=== PATIENT | male | born 1940 | race Caucasian/White ===

== ENCOUNTER 2018-02-21 13:33 | Emergency (ER) | payer MEDICARE, OTHER, SELFPAY ==
[2018-02-21 14:06] VITALS: BP 115/69; PULSE 61; RESP 16; TEMP 36.4; O2SAT 97
--- NOTE | 2018-02-21 14:19 | ED.LOWEXIN ---
HPI - Extremity Injury (Lower) General Chief Complaint: Extremity Injury, Lower Stated Complaint: PAIN RIGHT HIP Time Seen by Provider: 02/21/18 14:02 Source: patient Mode of arrival: ambulatory Limitations: no limitations History of Present Illness HPI Narrative: 77-year-old male here for evaluation of right hip pain. Patient states that it has been going on for some time now. He states that several weeks ago he had a back surgery done by a orthopedics. His also had a right hip replacement in the past. He states that since his back surgery he has had increasing right hip pain. Reports that it is on the outside of his hip. Is taking Tylenol. Worse with standing for long periods of time. Did have an appointment with his back surgeon today at 0230 however for some reason came to the emergency department instead of the doctor's office. No fevers. No urinary symptoms. No change of bowel. No saddle anesthesia. Related Data Home Medications Medication Instructions Recorded Confirmed acetaminophen 0 mg PO Q4HP PRN 02/21/18 02/21/18 omeprazole magnesium [Prilosec OTC] 40 mg PO DAILY 02/21/18 02/21/18 warfarin [Coumadin] 5 mg PO DAILY 02/21/18 02/21/18 Previous Rx's Medication Instructions Recorded lidocaine 1 patch TOP DAILY #1 each 02/21/18 tramadol 50 mg PO Q6H PRN #14 tab 02/21/18 Allergies Allergy/AdvReac Type Severity Reaction Status Date / Time hydromorphone [From DILAUDID] Allergy Unknown Halucinatio Unverified 02/21/18 14:14 ns Penicillins [PENICILLINS] Allergy Unknown A CHILD Unverified 02/21/18 14:14 - UNKNOWN REACTION PER PT ELECTRODES Allergy Mild RASH Uncoded 02/21/18 14:14 Review of Systems Constitutional Denies fever(s) Cardiovascular Denies chest pain and Denies dyspnea Respiratory Denies dyspnea Gastrointestinal Gastrointestinal: Denies abdominal pain and Denies nausea Genitourinary Denies urinary frequency, Denies urinary hesitancy and Denies urinary incontinence Musculoskeletal Reports back pain, Reports myalgias (Right upper thigh), Reports arthralgias (Right hip) and Denies muscle weakness Integumentary/Breasts Denies lesions and Denies rash Hematologic/Lymphatic Denies easy bleeding and Denies easy bruising PFSH Medical History Gastroesophageal reflux disease (Acute) Social History Smoking Status: Current every day smoker Exam Initial Vital Signs Initial Vital Signs: Vital Signs Temperature 97.5 F L 02/21/18 14:06 Pulse Rate 61 02/21/18 14:06 Respiratory Rate 16 02/21/18 14:06 Blood Pressure 115/69 02/21/18 14:06 Pulse Oximetry 97 02/21/18 14:06 Const General: cooperative, comfortable, well developed, well groomed and No acute distress Orientation: alert, awake and oriented x3 HENMT Head: normal to inspection and normocephalic Resp Effort & Inspection: normal respiratory effort Auscultation: clear to auscultation bilaterally Skin Lesions: no lesions Rashes: no rashes Neuro General: alert, awake and oriented x3 Extrem Other: Tenderness to palpation over the right greater trochanter. Otherwise unremarkable Psych Appearance: grossly normal and well kempt Course Orders Ordered: ED Orders 02/21/18 15:00 XR hip w pel if done RT 2V Stat Discontinued Medications Hydrocodone Bitart/Acetaminophen ([place] 5/325) 1 tab PO NOW ONE Stop: 02/21/18 16:19 Vital Signs - 8 hr 02/21/18 14:06 02/21/18 15:37 Temperature 97.5 F L Pulse Rate 61 57 L Respiratory Rate 16 16 Blood Pressure 115/69 Blood Pressure [Right Arm] 141/91 H Pulse Oximetry 97 94 MDM - Extremity Injury (Lower) Medical Records Attestation: I reviewed the patient's medical records. Imaging Data Right hip: Radiologist's impression: [address] [address] XRay Report Signed Patient: Kayden Chris WMR#: [id number] : 2Acct:[id number] Age/Sex: 77 / MDate of Service: 02/21/18 Loc: ED Accession Number: [id number] Procedure: XR hip w pel if done RT 2V Ordering Provider: Ellis Garrett D.O. PROCEDURE: XR HIP W PEL IF DONE RT 2V INDICATIONS: right hip pain after DORYS TECHNIQUE: AP pelvis with lateral view(s) of the right hip(s). COMPARISON: [facility] [place], XR PELVIS W LATERAL HIP LT, 01/18/2016, 12:20. FINDINGS: Bones: Old bilateral ischial fractures, surgical changes in the lower lumbar spine and status post total right hip arthroplasty with considerable surrounding ossifications as well as degenerative left hip joint disease colon appear unchanged except the lower lumbar spine was not included on the previous exam. On lateral view of the right hip, there is a nutrient groove noted posteriorly. Soft tissues: The visualized bowel gas pattern is normal. No suspicious soft tissue calcifications. IMPRESSION: No acute bony abnormality is identified. Previous post traumatic and surgical changes. Dictated by: Lobo Alvarez M.D. on 02/21/2018 at 15:45 Approved by: Lobo Alvarez M.D. on 02/21/2018 at 15:50 [facility] Narrative Medical decision making narrative: Patient with right lateral hip pain. X-ray shows no acute pathology. I discussed the case with Dr. Camarena with Orthopedic surgery who states he did not take a graft from the patient's pelvis like the patient thought. Patient has only been taking Tylenol. Will increase his pain medication. Patient was instructed he needed to contact his orthopedic provider for follow-up. He is given return precautions. He expressed understanding and agreement with plan. Discharge Plan Departure Patient Disposition: Home Clinical Impression: Acute right hip pain Instructions: How To Perform RICE (Rest, Ice, Compress, Elevate), DI for Hip Pain Activity Restrictions/Additional Instructions: Recommend you take the medication that you were given today as directed. Contact your orthopedic surgeon's office for a follow-up. Contact your primary care doctor's office for follow-up. Return to the emergency department for any new symptoms. Prescriptions: New tramadol 50 mg tablet 50 mg PO Q6H PRN (Reason: pain) Qty: 14 RF: 0 lidocaine 5 % adhesive patch,medicated 1 patch TOP DAILY Qty: 1 RF: 0 No Action acetaminophen 325 MG tablet PO Q4HP PRN (Reason: Pain (Scale Score 1-3)) RF: 0 omeprazole magnesium [Prilosec OTC] 20 mg Tablet,Delayed Release (Dr/Ec) 40 mg PO DAILY RF: 0 warfarin [Coumadin] 5 mg Tablet 5 mg PO DAILY RF: 0
--- NOTE | 2018-02-21 14:22 | PC.NURSE ---
patient had back surgery 5 months ago and is complaining of right hip pain for 5 months and reports that the pain exacerbates each day. he reports that sitting and standing too long provokes the pain but walking improves the pain at times.
--- NOTE | 2018-02-21 15:00 | DI.RAD.S_ITS ---
PROCEDURE: XR HIP W PEL IF DONE RT 2V INDICATIONS: right hip pain after DORYS TECHNIQUE: AP pelvis with lateral view(s) of the right hip(s). COMPARISON: [facility] [place], CR, XR PELVIS W LATERAL HIP LT, 01/18/2016, 12:20. FINDINGS: Bones: Old bilateral ischial fractures, surgical changes in the lower lumbar spine and status post total right hip arthroplasty with considerable surrounding ossifications as well as degenerative left hip joint disease colon appear unchanged except the lower lumbar spine was not included on the previous exam. On lateral view of the right hip, there is a nutrient groove noted posteriorly. Soft tissues: The visualized bowel gas pattern is normal. No suspicious soft tissue calcifications. IMPRESSION: No acute bony abnormality is identified. Previous post traumatic and surgical changes. Dictated by: Lobo Alvarez M.D. on 02/21/2018 at 15:45 Approved by: Lobo Alvarez M.D. on 02/21/2018 at 15:50
[2018-02-21 15:37] VITALS: BP 141/91; PULSE 57; RESP 16; O2SAT 94
[2018-02-21 16:30] VITALS: BP 150/78; PULSE 53; RESP 16; O2SAT 94
[2018-02-21] MEDS: HYDROCODONE/ACET 5/325 TABLET 1 TAB PO (16:45)
--- NOTE | 2018-02-22 15:24 | PC.NURSE ---
Pt called ER with difficulty with prescriptions. Reported only received one lidocaine patch. Discussed with Dr. Garrett and received order for quantity of 30. Called order to [facility] on [facility].
== END 2018-02-21 16:56 | disposition home or self-care (01) ==
PROVIDERS: Emergency Provider Emergency Medicine
DX: M25.551 Pain in right hip (principal)
CPT/HCPCS: 73502; 99283

== ENCOUNTER → 2019-05-13 10:55 | Outpatient (CLI) | payer MEDICARE, OTHER, SELFPAY ==
--- NOTE | 2019-05-13 | DI.MRI.S_ITS ---
PROCEDURE: MR SHOULDER RT WO CON INDICATIONS: RIGHT SHOULDER PAIN TECHNIQUE: Noncontrast oblique coronal T2 fast spin echo with fat saturation, oblique sagittal T1 spin echo and T2 fast spin echo with fat saturation, axial T1 spin echo and T2 fast spin echo with fat saturation through the shoulder. COMPARISON: None. FINDINGS: Image quality: Diagnostic. Rotator cuff: No full-thickness tear the rotator cuff is appreciated. There is prominent thickening and diffuse increased signal involving the supraspinatus and infraspinatus tendons. A low to moderate grade partial-thickness tear along the articular surface of the distal supraspinatus tendon is identified that extends along the myotendinous junction. A similar appearance is noted involving the infraspinatus tendon. The subscapularis and teres minor tendons are intact. There is no significant atrophy of the rotator cuff muscles. Bones and bursae: No acute fracture, dislocation, or suspicious osseous lesion is identified involving the osseous structures of the right shoulder. Mild degenerative changes of the glenohumeral joint are present. There is a small glenohumeral joint effusion. Severe degenerative changes of the acromioclavicular joint with inferior positioning of the acromion with respect to the distal clavicle. There is mild lateral acromial downsloping. Fluid is contained within the subacromial subdeltoid bursa. Capsule and soft tissues: Evaluation of the labrum and the glenohumeral ligaments is suboptimal without intra-articular contrast. However, there is at least a small superior labral tear extending from approximately the 10 o'clock position to the 2 o'clock position. There may be an additional subtle tear long head anteroinferior margin of the labrum. No large paralabral cysts are evident. The long head of the biceps tendon is normally positioned within the bicipital groove. However, there is prominent thickening and increased signal evident involving the intra-articular portion of this tendon. No acute injuries are suspected involving the glenohumeral ligaments. IMPRESSION: 1. Low to moderate grade intrasubstance/delaminating partial-thickness tearing of the supraspinatus and infraspinatus tendons with corresponding severe tendinopathy. 2. Small superior labral tear probably extends into the biceps anchor. 3. Moderate tendinopathy involving the intra-articular portion of the biceps tendon with possible intrasubstance low-grade partial-thickness tearing. 4. Severe degenerative changes of the acromioclavicular joint. Please correlate clinically to exclude subacromial impingement. 5. Mild degenerative changes of the glenohumeral joint. Dictated by: Kodak Waite M.D. on 05/13/2019 at 11:43 Approved by: Koadk Waite M.D. on 05/13/2019 at 11:46
== END ==
PROVIDERS: PCP Family Medicine; Visit Provider Orthopaedic Surgery
DX: M25.511 Pain in right shoulder (principal); M75.111 Incomplete rotator cuff tear or rupture of right shoulder, not specified as traumatic; S43.491A Other sprain of right shoulder joint, initial encounter; M67.911 Unspecified disorder of synovium and tendon, right shoulder
CPT/HCPCS: 73221

== ENCOUNTER → 2019-12-25 13:28 | Oncology outpatient (ONC) | payer MEDICARE, OTHER, SELFPAY ==
--- NOTE | 2019-12-25 14:21 | ONC.CONS ---
History of Present Illness - Data of Consult Patient: new to practice Consult date: 12/25/19 Requesting Physician: Adi Cleveland MD Primary Care Provider: Adi Cleveland MD - Consult Narrative Reason for consult: DVT/PE, now needing shoulder surg Narrative: Kayden Chris is a 79 year old male. He came in accompanied by his daughter. Patient has history of deep venous thrombosis and pulmonary embolism and has been on chronic anticoagulation. Upon further questioning, patient recalled that in 2014, patient developed left lower extremity DVT about a week after the food surgery. He was started on Xorelto, and treated for a couple of months and then stopped. In 2017, he underwent two levels of vertebral fusion surgery. Two days later, he developed PE. He said he had a distinct pulmonary symptoms. He was treated with Xarelto. Later, he switched to coumadin due to high cost of Xarelto. Dr. Albrecht is now managing his INR and coumadin dosage. The patient is now taking 7.5 mg 6 day a week, and 7.5 mg one day a week. He denies any bleeding problems or clot while on coumadin. He had an episode of strep infection requiring air-lifting to [place] for hospitalization and ICU. Patient is worried about possible blood clot. He has right arm rotator cuff injury and is considered for surgical repair. Dr. Hansen will plan to get surgery done here at . CC: Jennifer Fountain MD Home Medications and Allergies Home Medications Medication Instructions Recorded Confirmed Type acetaminophen 0 mg PO Q4HP PRN 02/21/18 12/25/19 History omeprazole magnesium [Prilosec OTC] 40 mg PO DAILY 02/21/18 12/25/19 History warfarin [Coumadin] 5 mg PO DAILY 02/21/18 12/25/19 History Allergies Allergy/AdvReac Type Severity Reaction Status Date / Time hydromorphone [From DILAUDID] Allergy Unknown Halucinatio Verified 02/21/18 16:41 ns Penicillins [PENICILLINS] Allergy Unknown A CHILD Verified 02/21/18 16:41 - UNKNOWN REACTION PER PT ELECTRODES Allergy Mild RASH Uncoded 02/21/18 14:14 Medical History - Medical, Surgical, Family History Medical History: Medical History (Last Updated 12/25/19 @ 14:50 by Jennifer Fountain MD) Back pain with history of spinal surgery Gastroesophageal reflux disease Surgical History: Surgical History (Last Updated 12/25/19 @ 14:50 by Jennifer Fountain MD) H/O foot surgery History of right hip replacement - Social History Smoking Status: Former smoker Substance Use Type: does not use Alcohol Intake: former Review of Systems All systems PM: reviewed and no additional remarkable complaints except as stated Exam Vital signs: 12/25/19 17:20 Last Vital Signs Temp 97.6 F 12/25/19 14:23 Pulse 60 12/25/19 14:23 Resp 18 12/25/19 14:23 BP 138/71 12/25/19 14:23 Pulse Ox 95 12/25/19 14:23 Narrative: ECOG 1 Vitals above reviewed Constitutional: well developed, and well nourished, and well groomed, not in any acute respiratory distress, pleasant and cooperative. HEENT: NCAT, EOMI, PERRLA. Anicteric sclera. Neck: Supple and symmetrical, no palpable masses. No palpable thyromegaly. Respiratory: No use of accessory muscles. CTAB, no wheezes. Cardiovascular: RRR, S1 and S2 normal, no M/G/R. No edema of lower extremities. Abdomen: Soft, NTND, no palpable masses. No palpable hepatosplenomegaly. No hernia. Lymphatic: no palpable palpable lymph nodes in the neck, or axillae Musculoskeletal: normal gait and station Neurological: CN II-XII grossly intact. No focal motor or sensory deficit. Psychiatric: Normal judgment and insight. AOx3. Normal memory (recent and remote). Normal mood and affect. Results - Imaging Additional studies: Procedures Extraction of Iliac Bone Marrow, Percutaneous Approach (09/10/17) Fusion of Lumbar Vertebral Joint with Autologous Tissue Substitute, Posterior Approach, Posterior Column, Open Approach (09/10/17) Fusion of Lumbar Vertebral Joint with Interbody Fusion Device, Posterior Approach, Anterior Column, Open Approach (09/10/17) Replacement of Right Hip Joint with Synthetic Substitute, Uncemented, Open Approach (08/23/15) Resection of Lumbar Vertebral Disc, Open Approach (09/10/17) Assessment and Plan (1) VTE (venous thromboembolism) Kayden is a 79-year-old gentleman with history of recurrent venous thromboembolism who was referred to here for opinion regarding management of anticoagulation regarding and elective right shoulder surgery. Kayden has had 2 episodes of VTE. The first episode happened in 2014 after he underwent left foot surgery. The VTE involved left lower extremity. Patient received couple of months of anticoagulation with Xarelto. The second episode happened again after surgery (vertebral fusion) probably in 2017. Patient was diagnosed with pulmonary embolism. Patient was treated initially with Xarelto thereafter switched to Coumadin because of the cost. Patient has chronic right shoulder bone changes and was evaluated by Dr. David Hansen. Therefore patient was referred here for consultation regarding management of geraldine-operative anticoagulation. I explained to the patient that he has a relatively high risk of thromboembolism if no anticoagulation bridging is offered. I talked about the protocol we usually follow from [facility]. For patients with normal serum creatinine clearance, the following protocol would be appropriate: 1. Last dose of warfarin on day -6 pre procedure 2. Hold warfarin day -5 through day -1 3. Start LMWH on day -3 (or when INR < lower limit of range) 4. Consider vitamin K 2.5mg PO on day -1 pre-procedure if INR > 1.5 5. Initiate UFH SQ/IV or LMWH when INR falls below lower limit of therapeutic range 6. Last dose LMWH 24 hours pre-procedure (on day -1, give ? dose LMWH if pt is receiving once-daily LMWH) 7. Resume warfarin 12-24 hrs post-procedure at 1 to 1.5 times usual maintenance dose (decision based on post-procedure assessment of bleeding risk) 8. Resume LMWH 24 hrs post-procedure (or 48-72hrs for major surgery or high bleeding risk procedure) and continue until INR > lower limit of therapeutic range
[2019-12-25 14:23] VITALS: BP 138/71; PULSE 60; RESP 18; TEMP 36.4; O2SAT 95
== END ==
LOC: ONC 13:34
PROVIDERS: PCP Family Medicine; Referring Provider Family Medicine; Visit Provider Internal Medicine Hematology & Oncology
DX: Z01.818 Encounter for other preprocedural examination (principal); Z86.718 Personal history of other venous thrombosis and embolism; Z86.711 Personal history of pulmonary embolism; Z79.01 Long term (current) use of anticoagulants; Z87.891 Personal history of nicotine dependence
CPT/HCPCS: 99204; 99214

== ENCOUNTER → 2021-02-08 08:10 | Outpatient (CLI) | payer MEDICARE, OTHER, SELFPAY ==
[2021-02-08 18:53] LABS: Add Manual Diff / Slide Review NO; Basophils Absolute Auto 0 /uL (0-100); Basophils Percent Auto 0.8 % (0-2); Eosinophils Absolute Auto 200 /uL (0-450); Eosinophils Percent Auto 4.8 % (2-4); Hematocrit 46.5 % (41-53); Hemoglobin 15.6 g/dL (13.5-17.5); Lymphocytes Absolute Auto 1700 /uL (1100-4500); Lymphocytes Percent Auto 34.9 % (25-40); Mean Corpuscular HGB Conc 33.6 % (30-36); Mean Corpuscular Hemoglobin 29.9 PG (26-34); Mean Corpuscular Volume 88.9 fL (80-100); Monocytes Absolute Auto 400 /uL (0-900); Monocytes Percent Auto 7.6 % (3-14); Neutrophils Absolute Auto 2500 /uL (1500-7000); Neutrophils Percent Auto 51.9 % (50-75); Platelet Count 156 X10^3/uL (150-400); Red Blood Cell Count 5.22 X10^6/uL (4.5-5.9); Red Cell Distribution Width 14.5 % (11.6-14.8); White Blood Cell Count 4.9 X10^3/uL (4.5-11.0)
[2021-02-08 19:03] LABS: HEMOLYSIS < 15 (0-50); Iron 97 ug/dL (49-181)
[2021-02-08 19:06] LABS: Alanine Aminotransferase 16 IU/L (<50); Albumin 3.8 g/dL (3.5-5.0); Albumin Globulin Ratio 1.4 (1.0-2.8); Alkaline Phosphatase 58 U/L (38-126); Aspartate Aminotransferase 27 IU/L (17-59); BUN Creatinine Ratio 17.7 (6-22); Bilirubin Total 0.8 mg/dL (0.2-1.3); Blood Urea Nitrogen 17 mg/dL (9-20); Calcium 9.3 mg/dL (8.4-10.2); Carbon Dioxide 29 mmol/L (22-32); Chloride 104 mmol/L (98-107); Cholesterol 260 mg/dL (140-199); Estimated Glomerular Filt Rate > 60.0 mL/min (>60); Globulin 2.8 g/dL (1.7-4.1); Glucose 98 mg/dL (80-110); HDL Cholesterol 48 mg/dL (40-60); HEMOLYSIS < 15 (0-50); LDL Cholesterol Calculated 190 mg/dL (<100); Potassium 4.1 mmol/L (3.4-5.1); Sodium 138 mmol/L (137-145); Total Protein 6.6 g/dL (6.3-8.2); Triglycerides 109 mg/dL (35-150)
[2021-02-08 19:16] LABS: Percent Iron Saturation 32 % (20-50); Total Iron Binding Capacity 301 ug/dL (261-462); Transferrin 237 mg/dL (206-381)
[2021-02-08 19:20] LABS: Vitamin D 25 Hydroxy (D3) 14.3 ng/mL (30.0-100.0)
[2021-02-08 19:35] LABS: Thyroid Stimulating Hormone 3.43 uIU/mL (0.47-4.68)
[2021-02-08 19:57] LABS: Vitamin B12 381 pg/mL (239-931)
== END ==
PROVIDERS: PCP Family Medicine; Visit Provider Physician Assistant
DX: E78.5 Hyperlipidemia, unspecified (principal); I63.9 Cerebral infarction, unspecified; E55.9 Vitamin D deficiency, unspecified; I69.311 Memory deficit following cerebral infarction; Z79.01 Long term (current) use of anticoagulants
CPT/HCPCS: 80053; 80061; 82306; 82607; 83540; 83550; 84443; 85025

== ENCOUNTER → 2021-07-15 10:46 | Outpatient (CLI) | payer MEDICARE, OTHER, SELFPAY ==
--- NOTE | 2021-07-15 | DI.MRI.S_ITS ---
PROCEDURE: MR LUMBAR SPINE WO CON INDICATIONS: Spinal stenosis, lumbar region with neurogenic cla TECHNIQUE: Noncontrast sagittal T1 spin echo and T2 fast echo, sagittal STIR, axial T1 and T2 fast spin echo through the lumbar spine. In cases with scoliosis, additional coronal T2 fast spin echo may be performed. COMPARISON: [facility], MR, L-SPINE WITHOUT CONTRAST, 02/13/2017, 11:51. FINDINGS: Image quality: Excellent. Alignment and Curvature: There is posterior fusion is present at L4-5. Mild reactive endplate changes are present L2-3, L5-S1. Schmorl's node is noted along the superior endplate of L3 L4 and possibly inferior endplate of L5. Bone Marrow: Marrow is of normal overall signal. No acute vertebral body compression fractures. Spinal Cord: Conus medullaris terminates at the L1 level. Visualized cord demonstrates normal signal and size. Paraspinous Soft Tissues: No paravertebral masses. Discs: Moderate to severe desiccation is present throughout the lumbar spine. L1-L2: Mild disc bulge with mild spinal stenosis. There is moderate to severe left and moderate right foraminal narrowing with facet and ligamentum flavum hypertrophy. Stable since prior exam. L2-L3: Mild disc bulge with moderate spinal stenosis. Moderate to severe left and moderate right foraminal narrowing, with facet and ligamentum flavum hypertrophy. Stable since prior exam. L3-L4: Mild disc bulge with moderate spinal stenosis. Minimal epidural lipomatosis is present. Moderate to severe bilateral foraminal narrowing, stable since prior exam. Facet and ligamentum flavum hypertrophy are present. L4-L5: Postsurgical changes are present. There is no spinal stenosis, markedly improved compared to prior MRI in [address] L spine in 2018. Moderate bilateral foraminal narrowing, mildly improved compared to prior MRI exam and stable since prior CT. L5-S1: Postsurgical changes are present. Mild spinal stenosis. Moderate bilateral foraminal narrowing with facet and ligamentum flavum hypertrophy. No appreciable interval change. IMPRESSION: 1. Posterior fusion at L4-5. 2. Multilevel foraminal narrowing stable since most recent prior exam. Foraminal narrowing is predominantly secondary to facet arthropathy. 3. Multilevel spinal stenosis stable compared to prior exam most notable at L2-3 and L3-4 secondary to disc bulge with contributing effect of facet/ligamentum flavum arthropathy. Dictated by: Lillian Buenrostro M.D. on 07/15/2021 at 13:14 Approved by: Lillian Buenrostro M.D. on 07/15/2021 at 14:15
== END ==
PROVIDERS: PCP Family Medicine; Referring Provider Orthopaedic Surgery Orthopaedic Surgery of the Spine; Visit Provider Orthopaedic Surgery Orthopaedic Surgery of the Spine
DX: M48.062 Spinal stenosis, lumbar region with neurogenic claudication (principal); M47.816 Spondylosis without myelopathy or radiculopathy, lumbar region; M48.061 Spinal stenosis, lumbar region without neurogenic claudication; M48.07 Spinal stenosis, lumbosacral region; M51.26 Other intervertebral disc displacement, lumbar region; Z98.1 Arthrodesis status
CPT/HCPCS: 72148

== ENCOUNTER → 2021-08-18 10:34 | Outpatient (CLI) | payer MEDICARE, OTHER, SELFPAY ==
--- NOTE | 2021-08-18 | DI.NM.S_ITS ---
PROCEDURE: NM BONE SCAN WHOLE BODY RADIOPHARMACEUTICAL: 19.6 mCi Tc-99m MDP IV. 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 Anterior and posterior views were acquired from vertex to feet. Additional left and right oblique views of the pelvis and hips were obtained. COMPARISON: [facility] [place], CR, XR PELVIS WITH LATERAL HIP RIGHT, 08/05/2021, 13:25. FINDINGS: Degenerative uptake of radiotracer at the acromioclavicular and glenohumeral joints. Right hip arthroplasty has been performed. No significant increased radiotracer uptake surrounding the right hip arthroplasty. IMPRESSION: 1. No evidence of right hip arthroplasty loosening. 2. Degenerative uptake of radiotracer at the acromioclavicular and glenohumeral joints. Dictated by: Ernie Schwartz M.D. on 08/18/2021 at 15:19 Approved by: Ernie Schwartz M.D. on 08/18/2021 at 16:48
== END ==
PROVIDERS: PCP Family Medicine; Referring Provider Orthopaedic Surgery; Visit Provider Orthopaedic Surgery
DX: T84.030A Mechanical loosening of internal right hip prosthetic joint, initial encounter (principal)
CPT/HCPCS: 78306; A9503

== ENCOUNTER → 2022-04-20 09:07 | Outpatient (CLI) | payer MEDICARE, OTHER, SELFPAY ==
[2022-04-20 20:05] LABS: Cholesterol 146 mg/dL (140-199); HDL Cholesterol 56 mg/dL (40-60); LDL Cholesterol Calculated 77 mg/dL (<100); Triglycerides 64 mg/dL (35-150)
[2022-04-24 18:36] LABS: Lamotrigine Lamictal 6.8 ug/mL (2.0-20.0)
== END ==
PROVIDERS: PCP Family Medicine
DX: E78.00 Pure hypercholesterolemia, unspecified (principal); R56.9 Unspecified convulsions
CPT/HCPCS: 80061; 80175

== ENCOUNTER → 2022-05-01 09:38 | Outpatient (CLI) | payer MEDICARE, OTHER, SELFPAY ==
[2022-05-01 19:25] LABS: Alanine Aminotransferase 20 IU/L (<50); Albumin 4.3 g/dL (3.5-5.0); Albumin Globulin Ratio 1.5 (1.0-2.8); Alkaline Phosphatase 55 U/L (38-126); Aspartate Aminotransferase 28 IU/L (17-59); Bilirubin Total 0.7 mg/dL (0.2-1.3); Blood Urea Nitrogen 18 mg/dL (9-20); Carbon Dioxide 33 mmol/L (22-32); Chloride 99 mmol/L (98-107); Estimated Glomerular Filt Rate > 60 mL/min (>60); Globulin 2.8 g/dL (1.7-4.1); Glucose 98 mg/dL (80-110); HEMOLYSIS < 15 (0-50); Potassium 4.3 mmol/L (3.4-5.1); Sodium 140 mmol/L (137-145); Total Protein 7.1 g/dL (6.3-8.2)
[2022-05-01 19:29] LABS: Add Manual Diff / Slide Review NO; Basophils Absolute Auto 0 /uL (0-100); Basophils Percent Auto 0.8 % (0-2); Eosinophils Absolute Auto 200 /uL (0-450); Eosinophils Percent Auto 4.3 % (2-4); Hematocrit 43.5 % (41-53); Hemoglobin 15.2 g/dL (13.5-17.5); Lymphocytes Absolute Auto 1500 /uL (1100-4500); Lymphocytes Percent Auto 28.6 % (25-40); Mean Corpuscular Hemoglobin 30.7 PG (26-34); Mean Corpuscular Volume 87.7 fL (80-100); Monocytes Absolute Auto 400 /uL (0-900); Monocytes Percent Auto 7.5 % (3-14); Neutrophils Absolute Auto 3100 /uL (1500-7000); Neutrophils Percent Auto 58.8 % (50-75); Platelet Count 137 X10^3/uL (150-400); Red Blood Cell Count 4.96 X10^6/uL (4.5-5.9); Red Cell Distribution Width 14.2 % (11.6-14.8); White Blood Cell Count 5.3 X10^3/uL (4.5-11.0)
[2022-05-01 19:38] LABS: Vitamin D 25 Hydroxy (D3) 26.3 ng/mL (30.0-100.0)
[2022-05-01 19:53] LABS: TSH w/ Reflex to FT4 3.22 uIU/mL (0.47-4.68)
[2022-05-01 20:12] LABS: Vitamin B12 653 pg/mL (239-931)
== END ==
PROVIDERS: PCP Family Medicine; Visit Provider Family Medicine
DX: I10 Essential (primary) hypertension (principal); I48.91 Unspecified atrial fibrillation; E53.8 Deficiency of other specified B group vitamins; E55.9 Vitamin D deficiency, unspecified
CPT/HCPCS: 80053; 82306; 82607; 84443; 85025

== ENCOUNTER → 2022-08-07 09:09 | Outpatient (CLI) | payer MEDICARE, OTHER, SELFPAY ==
[2022-08-07 19:39] LABS: Alanine Aminotransferase 21 IU/L (<50); Albumin 4.1 g/dL (3.5-5.0); Albumin Globulin Ratio 1.5 (1.0-2.8); Alkaline Phosphatase 60 U/L (38-126); Aspartate Aminotransferase 27 IU/L (17-59); BUN Creatinine Ratio 16.3 (6-22); Bilirubin Total 0.9 mg/dL (0.2-1.3); Blood Urea Nitrogen 16 mg/dL (9-20); Calcium 8.7 mg/dL (8.4-10.2); Carbon Dioxide 27 mmol/L (22-32); Chloride 103 mmol/L (98-107); Estimated Glomerular Filt Rate > 60 mL/min (>60); Globulin 2.7 g/dL (1.7-4.1); Glucose 92 mg/dL (80-110); HEMOLYSIS < 15 (0-50); Potassium 3.9 mmol/L (3.4-5.1); Sodium 139 mmol/L (137-145); Total Protein 6.8 g/dL (6.3-8.2)
[2022-08-07 20:08] LABS: Thyroid Stimulating Hormone 3.56 uIU/mL (0.47-4.68)
== END ==
PROVIDERS: PCP Family Medicine; Visit Provider Family Medicine
DX: Z00.00 Encounter for general adult medical examination without abnormal findings (principal); E78.00 Pure hypercholesterolemia, unspecified; I48.91 Unspecified atrial fibrillation
CPT/HCPCS: 80053; 84443

== ENCOUNTER → 2022-08-09 10:48 | Outpatient (CLI) | payer MEDICARE, OTHER, SELFPAY ==
--- NOTE | 2022-08-09 | DI.NM.S_ITS ---
PROCEDURE: NM FLO PERF SPECT R&S PHARM Rest and pharmacological stress myocardial perfusion SPECT with gated imaging and ejection fraction RADIOPHARMACEUTICAL: 10.6 mCi Tc-99m tetrafosmin IV at rest and 25.5 mCi Tc-99m tetrafosmin IV at peak effect of pharmacological stress. A [id number] was performed. INDICATIONS: Shortness of breath TECHNIQUE: Radiopharmaceutical was injected at peak stress test, and also at rest. SPECT images were obtained. SPECT myocardial perfusion images were displayed in short axis, horizontal long axis, and vertical long axis views. Gated images were reviewed using [employer] software. COMPARISON: None. CARDIAC STRESS: A pharmacologic stress test was performed under the supervision of an attending staff, using an infusion of regadenoson 0.4 mg IV. Hemodynamic data: There is normal blood pressure and heart rate response to pharmacologic stress. Symptoms: The patient denied anginal chest pain. EKG: No diagnostic changes of ischemia; no ectopy. FINDINGS: Raw data: There is good myocardial uptake of radiotracer. No significant motion artifacts. Dbry-wl-yycht ratio is 0.38 (normal is less than 0.38 for tetrafosmin tracer). Left ventricle function: Gated images demonstrate normal left ventricular wall thickening. No segmental wall motion abnormalities. No transient ischemic dilation; TID is 0.87 (normal less than 1.3). Left ventricle resting end diastolic volume is 139 mL. Left ventricle stress ejection fraction is 67%; normal range is above 45%. Myocardial perfusion: There is a large size, mild intensity fixed inferior wall defect that appears better in the supine images and resolves in the prone images. No reversible perfusion defects. IMPRESSION: Low risk study. No evidence of pharmacologic induced ischemia or scar. Normal left ventricular function with a slightly increased end-diastolic volume. Dictated by: Nicole Ramos D.O. on 08/09/2022 at 16:40 Approved by: Nicole Ramos D.O. on 08/09/2022 at 16:43
== END ==
PROVIDERS: PCP Family Medicine; Referring Provider Internal Medicine Cardiovascular Disease; Visit Provider Internal Medicine Cardiovascular Disease
DX: R06.02 Shortness of breath (principal)
CPT/HCPCS: 78452; 93017; A9502; J2785

== ENCOUNTER → 2022-10-16 08:19 | Outpatient (CLI) | payer MEDICARE, OTHER, SELFPAY ==
[2022-10-16 19:44] LABS: BUN Creatinine Ratio 18.3 (6-22); Blood Urea Nitrogen 20 mg/dL (9-20); Calcium 8.9 mg/dL (8.4-10.2); Carbon Dioxide 33 mmol/L (22-32); Chloride 101 mmol/L (98-107); Estimated Glomerular Filt Rate > 60 mL/min (>60); Glucose 96 mg/dL (80-110); HEMOLYSIS < 15 (0-50); Sodium 139 mmol/L (137-145)
== END ==
PROVIDERS: PCP Family Medicine; Visit Provider Family Medicine
DX: Z01.812 Encounter for preprocedural laboratory examination (principal)
CPT/HCPCS: 80048

== ENCOUNTER → 2022-11-01 11:18 | Outpatient (CLI) | payer MEDICARE, OTHER, SELFPAY ==
--- NOTE | 2022-11-01 11:22 | DI.CT.S_ITS ---
PROCEDURE: CT CHEST W CON INDICATIONS: wheezing, dyspnea for 2 months. NORMAL CXR TECHNIQUE: After the administration of intravenous contrast, 5 mm thick sections acquired from the pulmonary apices to the posterior costophrenic angles. 1 mm axial lung, 5 mm thick coronal and sagittal reformats and 7 mm axial MIP were acquired. For radiation dose reduction, the following was used: automated exposure control, adjustment of mA and/or kV according to patient size. COMPARISON: [facility], CT, PE STUDY (CTA CHEST), 09/15/2017, 19:50. [facility] ([place]), CR, XR CHEST 2V, 10/05/2022, 10:03. FINDINGS: Lungs and pleura: Mild emphysema. No consolidation, pleural effusion, or pneumothorax. A few scattered calcified granulomata are present. 4 mm nodule anterior left lower lobe (3/262) possibly calcified. Mediastinum: Multivessel coronary artery calcifications and/or stents. No pericardial effusion. No mediastinal or hilar adenopathy by size criteria. Thoracic aorta and central pulmonary arteries are normal in size. Esophagus is normal in caliber. Bones and chest wall: Multilevel degenerative change of the visualized spine. No axillary or supraclavicular adenopathy by size criteria. Probable soft tissue lipoma at the upper right back near midline, adjacent to the medial border of the scapula. Multiple remote right posterior rib fractures and/or thoracotomy changes. Abdomen: Prior cholecystectomy. Similar small hypodensity anterior aspect hepatic segment 2, possible cyst or hemangioma. IMPRESSION: 1. No consolidation, pleural effusion, or pneumothorax. 2. Mild emphysema. 3. A 4 mm nodule is present at the anterior left lower lobe. If the patient is considered low risk, imaging follow-up is not necessary per Fleischner society guidelines. If the patient is considered high risk, an optional 12 month follow-up chest CT could be obtained. Dictated by: Max Morgan M.D. on 11/01/2022 at 14:44 Approved by: Max Morgan M.D. on 11/01/2022 at 15:02
== END ==
PROVIDERS: PCP Family Medicine; Referring Provider Family Medicine; Visit Provider Family Medicine
DX: J43.9 Emphysema, unspecified (principal); R91.1 Solitary pulmonary nodule; I25.10 Atherosclerotic heart disease of native coronary artery without angina pectoris; R06.2 Wheezing; R06.00 Dyspnea, unspecified; Z57.5 Occupational exposure to toxic agents in other industries; Z90.49 Acquired absence of other specified parts of digestive tract
CPT/HCPCS: 71260; Q9967

== ENCOUNTER → 2022-11-16 13:46 | Outpatient (CLI) | payer MEDICARE, OTHER, SELFPAY ==
--- NOTE | 2022-11-16 13:47 | DI.RAD.S_ITS ---
PROCEDURE: FL BARIUM SWALLOW INDICATIONS: choking COMPARISON: [facility], CT, CT CHEST W CON, 11/01/2022, 11:36. FINDINGS: Function: There is normal esophageal peristalsis. There is severe gastroesophageal reflux. There is normal transit of a calibrated barium tablet through the esophagus into the stomach. Small sliding hiatal hernia. Morphology: Air-contrast images demonstrate normal mucosal morphology. Single contrast views show no esophageal strictures, extrinsic mass effects, or diverticula. Limited images of the stomach demonstrate normal appearance. IMPRESSION: 1. Severe gastroesophageal reflux. 2. Small hiatal hernia. Dictated by: Nile Lovelace M.D. on 11/16/2022 at 14:11 Approved by: Nile Lovelace M.D. on 11/16/2022 at 14:12
== END ==
PROVIDERS: PCP Family Medicine; Referring Provider Family Medicine; Visit Provider Family Medicine
DX: K21.9 Gastro-esophageal reflux disease without esophagitis (principal); K44.9 Diaphragmatic hernia without obstruction or gangrene
CPT/HCPCS: 74220

== ENCOUNTER → 2022-12-14 10:53 | Outpatient (CLI) | payer MEDICARE, OTHER, SELFPAY ==
--- NOTE | 2022-12-20 10:29 | PM.PFT.1 ---
Pulmonary Function Test Referral & Results Date Patient Seen: 12/14/22 Results: The spirometry demonstrates an FVC of 2.59 L which is 71% of predicted. The FEV1 was measured at 1.87 L which is 73% of predicted. The FEV1/FVC ratio was 72 which is 101% of predicted. Following the administration of bronchodilator there was 15% improvement in FEV1 and a 74% improvement in FEF 25-75%. Lung volumes show an SVC of 3.06 L which is 74% of predicted. The diffusing capacity was measured at 17.58 which is 59% of predicted. No hemoglobin value was provided, so no correction for potential anemia could be made, if appropriate. The maximum voluntary ventilation was reduced Interpretation: This study demonstrates mild obstructive lung disease based on reduction FEV1 although FEV1/FVC ratio is relatively preserved there is evidence of benefit following bronchodilator as above particularly in small airway flow based on improvement in FEF 25-75% There is a [id number]-[id number]-iakqyayq reduction in lung volumes suggesting the presence of qjkk-sf-twcmojyq restrictive lung disease There is also moderate reduction in diffusing capacity suggesting the presence of disease at the capillary alveolar level Altogether this is consistent with a diagnosis of COPD Clinical correlation suggested
== END ==
PROVIDERS: PCP Family Medicine; Referring Provider Family Medicine; Visit Provider Family Medicine
DX: R06.02 Shortness of breath (principal); R05.3 Chronic cough; J43.2 Centrilobular emphysema; Z87.891 Personal history of nicotine dependence
CPT/HCPCS: 94060; 94726; 94729

== ENCOUNTER → 2023-09-17 10:51 | Outpatient (CLI) | payer MEDICARE, OTHER, SELFPAY ==
[2023-09-17 19:30] LABS: Add Manual Diff / Slide Review NO; Basophils Absolute Auto 100 /uL (0-100); Basophils Percent Auto 1.1 % (0-2); Eosinophils Absolute Auto 300 /uL (0-450); Eosinophils Percent Auto 5.6 % (2-4); Hematocrit 37.7 % (41-53); Hemoglobin 12.8 g/dL (13.5-17.5); Lymphocytes Absolute Auto 1300 /uL (1100-4500); Lymphocytes Percent Auto 28.7 % (25-40); Mean Corpuscular HGB Conc 34.1 % (30-36); Mean Corpuscular Hemoglobin 30.1 PG (26-34); Mean Corpuscular Volume 88.4 fL (80-100); Monocytes Absolute Auto 400 /uL (0-900); Monocytes Percent Auto 8.3 % (3-14); Neutrophils Absolute Auto 2600 /uL (1500-7000); Neutrophils Percent Auto 56.3 % (50-75); Platelet Count 148 X10^3/uL (150-400); Red Blood Cell Count 4.26 X10^6/uL (4.5-5.9); Red Cell Distribution Width 14.9 % (11.6-14.8); White Blood Cell Count 4.7 X10^3/uL (4.5-11.0)
[2023-09-17 19:41] LABS: Alanine Aminotransferase 17 IU/L (<50); Albumin 3.9 g/dL (3.5-5.0); Albumin Globulin Ratio 1.5 (1.0-2.8); Alkaline Phosphatase 50 U/L (38-126); Aspartate Aminotransferase 33 IU/L (17-59); BUN Creatinine Ratio 25.2 (6-22); Bilirubin Total 0.6 mg/dL (0.2-1.3); Blood Urea Nitrogen 27 mg/dL (9-20); Calcium 8.9 mg/dL (8.4-10.2); Carbon Dioxide 29 mmol/L (22-32); Chloride 105 mmol/L (98-107); Estimated Glomerular Filt Rate > 60 mL/min (>60); Globulin 2.6 g/dL (1.7-4.1); Glucose 101 mg/dL (80-110); HEMOLYSIS < 15 (0-50); Potassium 3.8 mmol/L (3.4-5.1); Sodium 140 mmol/L (137-145); Total Protein 6.5 g/dL (6.3-8.2)
[2023-09-17 19:52] LABS: LDL Cholesterol Direct 56 mg/dL (<100)
[2023-09-17 20:21] LABS: TSH w/ Reflex to FT4 2.37 uIU/mL (0.47-4.68)
[2023-09-17 20:29] LABS: Vitamin B12 Reflex MMA if <400 710 pg/mL (239-931)
== END ==
PROVIDERS: PCP Family Medicine; Visit Provider Family Medicine
DX: R60.0 Localized edema (principal); E55.9 Vitamin D deficiency, unspecified; I10 Essential (primary) hypertension; G47.19 Other hypersomnia; R09.02 Hypoxemia; I48.91 Unspecified atrial fibrillation; E53.8 Deficiency of other specified B group vitamins
CPT/HCPCS: 80053; 82306; 82607; 83721; 84443; 85025

== ENCOUNTER → 2023-10-12 10:40 | Outpatient (CLI) | payer MEDICARE, OTHER, SELFPAY ==
--- NOTE | 2023-10-12 10:41 | DI.ECHO.S_ITS ---
[facility]---------+ [facility] +---------+ : : [address] : : : : [id number] : : : : Phone: [phone]+ Echocardiogram Report + + :Name: HEATHER GARCIA Study Date: 10/12/2023 Height: 68 in : :[facility] ReadingLocation: Weight: 235 lb : : Gender: Male BSA: 2.2 m2 : :: 1940 Age: 83 yrs BP: 144/86 mmHg: :Reason For Study: DYSPNEA : :Ordering Physician: АННА, : :MAICOL Performed By: Karson Gurrola : :Referring: MAICOL JJ : + + Interpretation Summary Normal sinus rhythm. Normal LV size; borderline LVH; normal wall motion and LV systolic function. EF is 60-65%; stage I diastolic dysfunction. Normal chamber sizes. Aortic sclerosis without stenosis; otherwise normal chamber sizes. No prior study available for comparison. Procedure: A two-dimensional transthoracic echocardiogram with color flow and Doppler was performed. The study quality was technically adequate. There is no prior echocardiogram noted for this patient. The heart rate ranged between 60-69 bpm during the study. Left Ventricle: The left ventricle is normal in size. Left ventricular wall thickness is borderline increased. The ejection fraction is estimated to be 60-65%. Right Ventricle: The right ventricle is normal in size, thickness and function. The right ventricular systolic function is normal. Atria: The left atrial size is normal. Right atrial size is normal. The interatrial septum grossly appears intact with no obvious evidence for an atrial septal defect. Mitral Valve: The mitral valve is normal in structure and function. There is no mitral valve stenosis. There is trace mitral regurgitation. Aortic Valve: The aortic valve is trileaflet. The aortic valve is mildly calcified. There is no aortic valve stenosis. There is mild aortic regurgitation. Tricuspid Valve: The tricuspid valve is normal in structure and function. There is no tricuspid stenosis. There is mild tricuspid regurgitation. The right ventricular systolic pressure is estimated to be at least 38 mmHg based on an estimated right atrial pressure of 3 mm Hg. Pulmonic Valve: The pulmonic valve is not well visualized. There is no pulmonic valvular stenosis. There is no pulmonic valvular regurgitation. Great Vessels: The aortic root is normal size. The ascending aorta could not be visualized. The IVC is of normal diameter and collapses greater than 50% with a sniff. This suggests a low right atrial pressure of 3 mm Hg. Pericardium/ Pleura There is no pericardial effusion. There is no pleural effusion. MMode/2D Measurements & Calculations LVIDd: 5.0 cm LVOT diam: 2.0 cm LVIDs: 3.3 cm Ao root diam: 3.4 cm FS: 34.5 % Ao Arch Diam (Prox Trans): 3.0 cm IVSd: 1.2 cm LVPWd: 0.97 cm LV alexander. diameter/BSA (cm/m^2): 2.3 LV sys. diameter/BSA (cm/m^2): 1.5 LA A2 area: 16.8 cm2 RA long axis: 5.0 cm LA A4 area: 15.3 cm2 RA area: 18.8 cm2 LA length (vol): 4.9 cm RA vol: 60.3 ml LA vol: 44.7 ml RA : 27.5 ml/m2 LA vol index: 20.4 ml/m2 IVC diam: 2.0 cm RVD1 (basal): 4.1 cm RVD2 (mid): 4.1 cm TAPSE: 3.1 cm Doppler Measurements & Calculations Ao V2 max: 202.8 cm/sec LVOT Max Lenin: 104.8 cm/sec Ao V2 mean: 144.3 cm/sec LV V1 max P.4 mmHg Ao max P.4 mmHg LV V1 VTI: 22.3 cm Ao mean P.2 mmHg YADI(I,D): 1.6 cm2 Ao V2 VTI: 44.5 cm YADI(V,D): 1.7 cm2 sev ratio: 0.50 YADI indexed to BSA (cm^2/m^2): 0.75 MV E max lenin: 63.2 cm/sec TR max lenin: 295.9 cm/sec MV A max lenin: 97.2 cm/sec TR max P.2 mmHg MV E/A: 0.65 PA V2 max: 115.5 cm/sec Med Peak E' Lenin: 4.8 cm/sec PA V2 mean: 81.5 cm/sec E/E' med: 13.2 PA mean P.9 mmHg Lat Peak E' Lenin: 6.4 cm/sec PA pr(Accel): 41.3 mmHg E/E' lat: 9.8 E/e' average: 11.5 MV dec time: 0.20 sec SV(LVOT): 72.9 ml Electronically signed by: Jeanne Parra M.D. on [place] Physician:10/13/2023 06:03 AM
== END ==
LOC: ECHO 10:40
PROVIDERS: PCP Family Medicine; Referring Provider Family Medicine; Visit Provider Family Medicine
DX: I48.91 Unspecified atrial fibrillation (principal); R06.00 Dyspnea, unspecified; R60.0 Localized edema; R09.02 Hypoxemia; I08.2 Rheumatic disorders of both aortic and tricuspid valves
CPT/HCPCS: 93306

== ENCOUNTER 2023-10-25 10:54 | Emergency (ER) | payer MEDICARE, OTHER, SELFPAY ==
[2023-10-25 11:02] VITALS: BP 157/72; PULSE 63; RESP 15; TEMP 36.1; O2SAT 96; BMI 34.2
--- NOTE | 2023-10-25 11:06 | DI.US.S_ITS ---
PROCEDURE: US PERIPH VENOUS LOW EXTREM LT INDICATIONS: PAIN, EDEMA TECHNIQUE: Real-time imaging, as well as color and pulse Doppler interrogation, were performed of the lower extremity deep veins from the inguinal ligament to the popliteal fossa, with documentation of the visualized calf veins. COMPARISON: None. FINDINGS: The common femoral, femoral, popliteal, and the visualized calf veins are normally compressible, and free of intraluminal thrombus. Color and pulse Doppler demonstrate normal phasic intraluminal flow. There is normal augmentation response to distal compression maneuver. IMPRESSION: No findings of lower extremity deep venous thrombosis. Dictated by: Leslie Hobbs MD, PhD on 10/25/2023 at 12:08 Approved by: Leslie Hobbs MD, PhD on 10/25/2023 at 12:08
--- NOTE | 2023-10-25 12:17 | ED_ITS ---
HPI - Extremity Problem <Raymundo Leo PA-C - Last Filed: 10/25/23 12:39> General Chief complaint: Extremity Problem,Nontraumatic Stated complaint: L lower leg pos. need US/painful/swollen Time Seen by Provider: 10/25/23 11:04 Source: patient Mode of arrival: Ambulatory History of Present Illness HPI Narrative: This is a 83-year-old male presenting to the emergency department due to left calf swelling onset 3 days ago. He states that he was somewhat uncomfortable the minus he did not significant acute pain. Denies any numbness. No traumas of the left calf. Does take a ?water pill? but is unsure of dosage. Had an echo done 2 weeks ago which showed an ejection fraction of 60-65%. Denies any new difficulty breathing, chest pain, or any other concerning signs or symptoms. Related Data Home Medications Medication Instructions Recorded Confirmed omeprazole magnesium 20 mg 40 mg PO DAILY 02/21/18 10/11/23 tablet,delayed release (Prilosec OTC) chlorhexidine gluconate 0.12 % PO 05/16/23 10/11/23 mouthwash Previous Rx's Medication Instructions Recorded apixaban 5 mg tablet 5 mg PO BID #60 tabs 08/14/22 metoprolol succinate 25 mg 25 mg PO DAILY #90 tabs 09/07/22 tablet,extended release 24 hr inhalational spacing device #1 ea 10/05/22 (Flexichamber spacer) umeclidinium 62.5 mcg-vilanterol 1 inh inhalation DAILY #60 ea 11/06/22 25 mcg/actuation powdr for inhalation (Anoro Ellipta) hydrocodone 5 mg-acetaminophen 325 1 tab PO QID PRN pain #60 tabs 12/15/22 mg tablet albuterol sulfate 90 mcg/actuation 2 puff inhalation Q6H PRN 01/09/23 aerosol inhaler shortness of breath or wheezing #6.7 grams rosuvastatin 40 mg tablet 40 mg PO ONCE PM #90 tabs 01/23/23 diazepam 2 mg tablet 2 mg PO BEDTIME PRN sleep #30 tabs 05/28/23 gabapentin 100 mg capsule See Rx Instructions PO TID PRN 05/29/23 pain, moderate #90 caps lamotrigine 25 mg tablet 100 mg (4 x 25 mg) PO BID 30 days 07/13/23 #240 tabs pramipexole 1.5 mg tablet 1.5 mg PO ONCE PM #90 tabs 07/13/23 hydrochlorothiazide 25 mg tablet 25 mg PO QAM take every morning to 07/26/23 prevent swelling #90 tabs Allergies Allergy/AdvReac Type Severity Reaction Status Date / Time hydromorphone [From DILAUDID] Allergy Unknown Hallucinati Verified 10/25/23 11:02 ons Penicillins [PENICILLINS] Allergy Unknown A CHILD Verified 10/25/23 11:02 - UNKNOWN REACTION PER PT ELECTRODES Allergy Mild RASH that Uncoded 10/11/23 12:14 does clear up Review of Systems <Raymundo Leo PA-C - Last Filed: 10/25/23 12:39> Review of Systems Narrative: GENERAL: Denies chills, fatigue, malaise, fever, sweats. HEENT: Denies sinus pain, ear pain, sore throat, difficulty swallowing, dizziness. RESPIRATORY: Denies dyspnea, cough, wheezing, hemoptysis, sputum. CARDIOVASCULAR: Denies chest pain, palpitations, orthopnea, edema, GASTROINTESTINAL: Denies nausea, vomiting, abdominal pain, diarrhea, constipation, melena. : Denies dysuria, frequency, incontinence, hematuria, urinary retention. MUSCULOSKELETAL: Left lower extremity swelling SKIN: Denies rash, skin lesions, or other NEUROLOGIC: Denies weakness, headache, numbness, change in speech, confusion, seizures, incoordination. PSYCHIATRIC: No concerning psychosocial issues. 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) VTE (venous thromboembolism) Back pain with history of spinal surgery Gastroesophageal reflux disease Acute respiratory failure with hypoxia Pulmonary emboli Surgical History History of right hip replacement H/O foot surgery S/P lumbar spinal fusion History of total hip arthroplasty Social History Smoking Status: Former smoker alcohol intake: former substance use type: does not use Smoking Status: Former smoker alcohol intake frequency: holidays/special occasions only Substance Use Type: does not use Exam <Raymundo Leo PA-C - Last Filed: 10/25/23 12:39> Narrative Exam Narrative: GENERAL: Well-developed patient, in mild distress. HEAD: Atraumatic. Normocephalic. EYES: Pupils equal round and reactive. Extraocular motions intact. No scleral icterus. No injection or drainage. ENT: Nose without bleeding, purulent drainage. Throat without erythema, tonsillar hypertrophy or exudate. Airway patent. NECK: Trachea midline. Non tender EXTREMITIES: 1+ pitting edema to the left lower extremity. No significant pain with palpation. No erythema. Neurovascularly intact. NEURO: AOx3. SKIN: No rash or erythema of visible areas Initial Vital Signs Initial Vital Signs: Vital Signs Temperature 97.0 F L 10/25/23 11:02 Pulse Rate 63 10/25/23 11:02 Respiratory Rate 15 10/25/23 11:02 Blood Pressure 157/72 H 10/25/23 11:02 Pulse Oximetry 96 10/25/23 11:02 Oxygen Delivery Method Room Air 10/25/23 11:02 <Ellis Garrett DO - Last Filed: 10/25/23 13:11> Initial Vital Signs Initial Vital Signs: Vital Signs Temperature 97.0 F L 10/25/23 11:02 Pulse Rate 63 10/25/23 11:02 Respiratory Rate 15 10/25/23 11:02 Blood Pressure 157/72 H 10/25/23 11:02 Pulse Oximetry 96 10/25/23 11:02 Oxygen Delivery Method Room Air 10/25/23 11:02 Course <Raymundo Leo PA-C - Last Filed: 10/25/23 12:39> Orders Ordered: ED Orders 10/25/23 11:06 periph venous low extrem lt Stat Vital Signs Vital signs: Vital Signs - 8 hr 10/25/23 11:02 10/25/23 12:56 Temperature 97.0 F L Pulse Rate 63 65 Respiratory Rate 15 16 Blood Pressure 157/72 H 148/76 H Pulse Oximetry 96 95 Oxygen Delivery Method Room Air Room Air <Ellis Garrett DO - Last Filed: 10/25/23 13:11> Orders Ordered: ED Orders 10/25/23 11:06 US perip venous low extrem lt Stat Vital Signs Vital signs: Vital Signs - 8 hr 10/25/23 11:02 10/25/23 12:56 Temperature 97.0 F L Pulse Rate 63 65 Respiratory Rate 15 16 Blood Pressure 157/72 H 148/76 H Pulse Oximetry 96 95 Oxygen Delivery Method Room Air Room Air MDM - Extremity (Nontraumatic) <Raymundo Leo PA-C - Last Filed: 10/25/23 12:39> Imaging Data US - DVT: Radiologist's Impression: [address] [address] Ultrasound Report Signed Patient: Kayden Chris MR#: [id number] : 1940 Acct:[id number] Age/Sex: 83 / M Date of Service: 10/25/23 Loc: ED Accession Number: [id number] Procedure: US perip venous low extrem lt Ordering Provider: Raymundo Leo P.A-C PROCEDURE: US PERIP VENOUS LOW EXTREM LT INDICATIONS: PAIN, EDEMA TECHNIQUE: Real-time imaging, as well as color and pulse Doppler interrogation, were performed of the lower extremity deep veins from the inguinal ligament to the popliteal fossa, with documentation of the visualized calf veins. COMPARISON: None. FINDINGS: The common femoral, femoral, popliteal, and the visualized calf veins are normally compressible, and free of intraluminal thrombus. Color and pulse Doppler demonstrate normal phasic intraluminal flow. There is normal augmentation response to distal compression maneuver. IMPRESSION: No findings of lower extremity deep venous thrombosis. Dictated by: Leslie Hobbs MD, PhD on 10/25/2023 at 12:08 Approved by: Leslie Hobbs MD, PhD on 10/25/2023 at 12:08 [facility] Narrative Medical decision making narrative: ED course: This is a 83-year-old male presents to the emergency department due to acute onset left lower extremity swelling as of 3 days ago. DVT ultrasound negative. Patient does have a history of peripheral edema and recommended he speak with his primary care provider for possible increasing of his diuretic. He was unsure of his dosage today. Patient is anticoagulated on Eliquis due to history of DVT as well as PE. Recommended compression stockings, elevation, and PCP follow up for the left lower extremity peripheral edema. CC: Left calf swollen Complicating co-morbidities: History of DVT, on Eliquis, hypertension, TIA, AFib Data collected from: Previous notes Medical records reviewed: Patient was seen here 5 years ago due to acute right hip pain. X-rays unremarkable. Discharged with the ortho follow up. Patient takes Eliquis. Patient had echo done 2 weeks ago which showed an ejection fraction of 60-65%. History of DVT, epilepsy, hypertension, TIA, AFib, PE Differential considered, but not limited to: DVT, peripheral edema, chronic venous stasis, fracture Exam documented above, pertinent findings include: 1+ pitting edema, no significant pain with palpation to the posterior calf Lab Test results independently reviewed as above. Pertinent findings: None obtained Imaging studies independently reviewed: DVT ultrasound negative Scores Used: None MIPS Elements: None Consultations: None Treatments: None Re-evaluations: None Discussion: Discussed plan with the patient was comfortable with the plan Diagnosis: Peripheral edema Disposition: see below, along with detailed discharge instructions that have been reviewed with patient as well as indications for ED re-evaluation and additional outpatient follow up Discharge Plan Departure Patient Disposition: Home Clinical Impression: Edema, peripheral Activity Restrictions/Additional Instructions: Thank you for coming to the [facility] Emergency Department today. As we discussed ultrasound was negative for DVT/?blood clot? in your left lower leg. I suspect you may need to increase the ?water pill? you are taking. Please speak with your primary care provider for the recommendations regarding the increase in dosage. I also recommended lzre-nvc-hubreni compression stock ing as well as elevation to help with your left lower extremity edema. Please return to the emergency department if you develop any chest pain, shortness of breath, or any other concerning signs or symptoms. I hope you feel better soon. Please follow up with your primary care provider within a week if your symptoms continue. If you do not have a primary care provider please contact the [facility] Resource line at [phone]. They will ask some questions about your medical history and help you get set up with a provider in the community. Prescriptions: No Action hydrocodone-acetaminophen 5-325 mg tablet 1 tab PO QID PRN (Reason: pain) Qty: 60 0RF Rx Instructions: use sparingly. never use with or around alcohol. never use with or around diazepam (valium). These combinations INCREASE risk of respiratory failure and . This medication alone can lead to respiratory failure and rosuvastatin 40 mg tablet 40 mg PO ONCE PM Qty: 90 3RF diazepam 2 mg tablet 2 mg PO BEDTIME PRN (Reason: sleep) Qty: 30 1RF Rx Instructions: do NOT use every night. lamotrigine 25 mg tablet 100 mg PO BID 30 Days Qty: 240 2RF pramipexole 1.5 mg tablet 1.5 mg PO ONCE PM Qty: 90 3RF omeprazole magnesium [Prilosec OTC] 20 mg Tablet,Delayed Release (Dr/Ec) 40 mg PO DAILY (DME) Flexichamber Spacer See Rx Instructions .Route Qty: 1 1RF Rx Instructions: As directed albuterol sulfate 90 mcg/actuation HFA aerosol inhaler 2 puff inhalation Q6H PRN (Reason: shortness of breath or wheezing) Qty: 6.7 6RF Rx Instructions: please read instructions carefully. use spacer. Ok to skip doses if doing well chlorhexidine gluconate 0.12 % mouthwash PO hydrochlorothiazide 25 mg tablet 25 mg PO QAM Qty: 90 1RF apixaban 5 mg tablet 5 mg PO BID Qty: 60 5RF metoprolol succinate 25 mg tablet extended release 24 hr 25 mg PO DAILY Qty: 90 3RF Rx Instructions: stop carvediolol due to wheezing Anoro Ellipta 62.5-25 mcg/actuation blister with device 1 inh inhalation DAILY Qty: 60 12RF Hold Instructions: UNABLE TO AFFORD gabapentin 100 mg capsule See Rx Instructions PO TID PRN (Reason: pain, moderate) Qty: 90 1RF Rx Instructions: UPDATE RX: 1 tab po TID, but may take 2 at bedtime. Referrals: Jeanette Jaimes MD [Primary Care Provider] - Stand Alone Forms: Patient Portal/API ED Sign-out <Ellis Garrett DO - Last Filed: 10/25/23 13:11> Cosign ED Attending Cosjoseature Attestation: Dr Garrett Co-Sign Statement: I was available for consultation during this patient's emergency department visit. This chart is signed by myself for administrative purposes only. I did not have direct contact with this patient during this visit. They were seen independently by the APC.
[2023-10-25 12:56] VITALS: BP 148/76; PULSE 65; RESP 16; O2SAT 95
== END 2023-10-25 12:45 | disposition home or self-care (01) ==
PROVIDERS: Emergency Provider Physician Assistant Medical; PCP Family Medicine
DX: R60.0 Localized edema (principal)
CPT/HCPCS: 93971; 99282; 99283

== ENCOUNTER → 2023-10-30 12:52 | Outpatient (CLI) | payer MEDICARE, OTHER, SELFPAY ==
[2023-10-30 19:12] LABS: Add Manual Diff / Slide Review NO; Basophils Absolute Auto 100 /uL (0-100); Basophils Percent Auto 0.9 % (0-2); Eosinophils Absolute Auto 300 /uL (0-450); Eosinophils Percent Auto 5.4 % (2-4); Hematocrit 39.8 % (41-53); Hemoglobin 13.5 g/dL (13.5-17.5); Lymphocytes Absolute Auto 1700 /uL (1100-4500); Lymphocytes Percent Auto 28.1 % (25-40); Mean Corpuscular Hemoglobin 29.5 PG (26-34); Mean Corpuscular Volume 86.9 fL (80-100); Monocytes Absolute Auto 500 /uL (0-900); Monocytes Percent Auto 8.7 % (3-14); Neutrophils Absolute Auto 3400 /uL (1500-7000); Neutrophils Percent Auto 56.9 % (50-75); Platelet Count 186 X10^3/uL (150-400); Red Blood Cell Count 4.58 X10^6/uL (4.5-5.9); Red Cell Distribution Width 14.9 % (11.6-14.8)
[2023-10-30 19:13] LABS: HEMOLYSIS < 15 (0-50); Iron 81 ug/dL (49-181)
[2023-10-30 19:14] LABS: Reticulocyte Count, Percent 1.1 % (0.9-2.6)
[2023-10-30 19:20] LABS: BUN Creatinine Ratio 27.5 (6-22); Blood Urea Nitrogen 28 mg/dL (9-20); Calcium 9.3 mg/dL (8.4-10.2); Carbon Dioxide 33 mmol/L (22-32); Chloride 101 mmol/L (98-107); Estimated Glomerular Filt Rate > 60 mL/min (>60); Glucose 92 mg/dL (80-110); HEMOLYSIS 18 (0-50); Potassium 3.5 mmol/L (3.4-5.1); Sodium 139 mmol/L (137-145)
[2023-10-30 19:28] LABS: Percent Iron Saturation 21 % (20-50); Total Iron Binding Capacity 379 ug/dL (261-462); Transferrin 285 mg/dL (206-381)
[2023-10-30 19:49] LABS: Ferritin 30 ng/mL (18-464)
== END ==
PROVIDERS: PCP Family Medicine; Visit Provider Family Medicine
DX: D64.9 Anemia, unspecified (principal); I10 Essential (primary) hypertension; R60.0 Localized edema; R06.00 Dyspnea, unspecified
CPT/HCPCS: 80048; 82728; 83540; 83550; 85025; 85045

== ENCOUNTER → 2024-04-18 11:58 | Outpatient (CLI) | payer MEDICARE, OTHER, SELFPAY ==
[2024-04-18 21:52] LABS: Add Manual Diff / Slide Review NO; Basophils Absolute Auto 0 /uL (0-100); Basophils Percent Auto 0.7 % (0-2); Eosinophils Absolute Auto 200 /uL (0-450); Eosinophils Percent Auto 4.3 % (2-4); Hematocrit 35.3 % (41-53); Hemoglobin 11.9 g/dL (13.5-17.5); Lymphocytes Absolute Auto 1500 /uL (1100-4500); Lymphocytes Percent Auto 27.7 % (25-40); Mean Corpuscular HGB Conc 33.6 % (30-36); Mean Corpuscular Hemoglobin 28.9 PG (26-34); Mean Corpuscular Volume 86.1 fL (80-100); Monocytes Absolute Auto 400 /uL (0-900); Monocytes Percent Auto 7.2 % (3-14); Neutrophils Absolute Auto 3300 /uL (1500-7000); Neutrophils Percent Auto 60.1 % (50-75); Platelet Count 180 X10^3/uL (150-400); Red Cell Distribution Width 14.1 % (11.6-14.8); White Blood Cell Count 5.5 X10^3/uL (4.5-11.0)
[2024-04-18 21:58] LABS: Alanine Aminotransferase 20 IU/L (<50); Albumin Globulin Ratio 1.4 (1.0-2.8); Alkaline Phosphatase 47 U/L (38-126); Aspartate Aminotransferase 34 IU/L (17-59); BUN Creatinine Ratio 25.7 (6-22); Bilirubin Total 0.6 mg/dL (0.2-1.3); Blood Urea Nitrogen 29 mg/dL (9-20); Calcium 9.5 mg/dL (8.4-10.2); Carbon Dioxide 31 mmol/L (22-32); Chloride 99 mmol/L (98-107); Estimated Glomerular Filt Rate > 60 mL/min (>60); Globulin 2.8 g/dL (1.7-4.1); Glucose 113 mg/dL (80-110); HEMOLYSIS 20 (0-50); Magnesium 2.1 mg/dL (1.6-2.3); Potassium 3.8 mmol/L (3.4-5.1); Sodium 136 mmol/L (137-145); Total Protein 6.8 g/dL (6.3-8.2)
== END ==
PROVIDERS: PCP Family Medicine; Visit Provider Family Medicine
DX: I47.10 Supraventricular tachycardia, unspecified (principal); Z79.899 Other long term (current) drug therapy; I51.89 Other ill-defined heart diseases; G47.419 Narcolepsy without cataplexy; D64.9 Anemia, unspecified; R26.89 Other abnormalities of gait and mobility; G47.19 Other hypersomnia; J44.9 Chronic obstructive pulmonary disease, unspecified; R06.00 Dyspnea, unspecified; G40.909 Epilepsy, unspecified, not intractable, without status epilepticus; H90.3 Sensorineural hearing loss, bilateral; E55.9 Vitamin D deficiency, unspecified; Z79.01 Long term (current) use of anticoagulants; I10 Essential (primary) hypertension
CPT/HCPCS: 80053; 83735; 85025

== ENCOUNTER → 2024-05-20 10:58 | Outpatient (CLI) | payer MEDICARE, OTHER, SELFPAY ==
[2024-05-20 18:57] LABS: HEMOLYSIS < 15 (0-50); Iron 42 ug/dL (49-181)
[2024-05-20 19:12] LABS: Percent Iron Saturation 13 % (20-50); Total Iron Binding Capacity 336 ug/dL (261-462); Transferrin 304 mg/dL (206-381)
[2024-05-20 19:34] LABS: Ferritin 13 ng/mL (18-464)
[2024-05-20 19:52] LABS: Vitamin B12 765 pg/mL (239-931)
== END ==
PROVIDERS: PCP Family Medicine; Visit Provider Family Medicine
DX: D64.9 Anemia, unspecified (principal); E55.9 Vitamin D deficiency, unspecified; R53.83 Other fatigue; E53.8 Deficiency of other specified B group vitamins
CPT/HCPCS: 82306; 82607; 82728; 83540; 83550

== ENCOUNTER → 2024-06-14 11:04 | Outpatient (CLI) | payer MEDICARE, OTHER, SELFPAY ==
[2024-06-18 17:10] LABS: Fecal Immunochemical Test Positive (Negative)
== END ==
PROVIDERS: PCP Family Medicine; Referring Provider Family Medicine; Visit Provider Family Medicine
DX: D64.9 Anemia, unspecified (principal); R79.0 Abnormal level of blood mineral
CPT/HCPCS: 82274

== ENCOUNTER → 2024-06-16 13:29 | Outpatient (CLI) | payer MEDICARE, OTHER, SELFPAY ==
[2024-06-16 19:39] LABS: Add Manual Diff / Slide Review NO; Basophils Absolute Auto 0 /uL (0-100); Basophils Percent Auto 0.6 % (0-2); Eosinophils Absolute Auto 400 /uL (0-450); Eosinophils Percent Auto 6.8 % (2-4); Hematocrit 35.6 % (41-53); Hemoglobin 11.7 g/dL (13.5-17.5); Lymphocytes Absolute Auto 1700 /uL (1100-4500); Lymphocytes Percent Auto 28.5 % (25-40); Mean Corpuscular HGB Conc 32.8 % (30-36); Mean Corpuscular Hemoglobin 27.2 PG (26-34); Mean Corpuscular Volume 83.1 fL (80-100); Monocytes Absolute Auto 500 /uL (0-900); Monocytes Percent Auto 8.3 % (3-14); Neutrophils Absolute Auto 3300 /uL (1500-7000); Neutrophils Percent Auto 55.8 % (50-75); Platelet Count 215 X10^3/uL (150-400); Red Blood Cell Count 4.28 X10^6/uL (4.5-5.9); Red Cell Distribution Width 15.9 % (11.6-14.8); White Blood Cell Count 5.9 X10^3/uL (4.5-11.0)
[2024-06-16 19:40] LABS: Appearance Urine UA CLEAR; Bilirubin Urine UA NEGATIVE (NEGATIVE); Color Urine UA YELLOW; Glucose Urine UA NEGATIVE (Negative); Ketones Urine UA NEGATIVE (NEGATIVE); Leukocyte Esterase Urine UA NEGATIVE (NEGATIVE); Nitrite Urine UA NEGATIVE (Negative); Occult Blood Urine UA TRACE-INTACT (Negative); Protein Urine UA NEGATIVE (Negative); Reticulocyte Count, Percent 1.5 % (0.9-2.6); Specific Gravity Urine UA 1.025 (1.000-1.035); Urobilinogen Urine UA 0.2 E.U./dL (0.2)
[2024-06-16 19:43] LABS: HEMOLYSIS < 15 (0-50); Iron 58 ug/dL (49-181)
[2024-06-16 19:47] LABS: Lactate Dehydrogenase 227 U/L (120-246)
[2024-06-16 19:49] LABS: RBC Urine 1-5/HPF (0-5/HPF); Urine Volume 10mL (spun); WBC Urine None Seen (0-5/HPF)
[2024-06-16 19:50] LABS: Amorphous Sediment Urine 1+; Bacteria Urine None Seen; Culture Indicated Urine Cult Not Indicated; Squamous Epithelial Cell Urine None Seen (0-5/HPF)
[2024-06-16 20:02] LABS: Percent Iron Saturation 16 % (20-50); Total Iron Binding Capacity 359 ug/dL (261-462); Transferrin 325 mg/dL (206-381)
[2024-06-16 20:26] LABS: Ferritin 20 ng/mL (18-464)
[2024-06-18 03:36] LABS: Haptoglobin 234 mg/dL (38-329)
== END ==
PROVIDERS: PCP Family Medicine; Visit Provider Family Medicine
DX: D64.9 Anemia, unspecified (principal); R31.9 Hematuria, unspecified
CPT/HCPCS: 81001; 82728; 83010; 83540; 83550; 83615; 85025; 85045

== ENCOUNTER → 2024-10-07 11:34 | Outpatient (CLI) | payer MEDICARE, OTHER, SELFPAY ==
[2024-10-07 18:46] LABS: HEMOLYSIS < 15 (0-50); Iron 69 ug/dL (49-181)
[2024-10-07 18:47] LABS: Add Manual Diff / Slide Review NO; Basophils Absolute Auto 0 /uL (0-100); Basophils Percent Auto 0.6 % (0-2); Eosinophils Absolute Auto 200 /uL (0-450); Eosinophils Percent Auto 2.9 % (2-4); Hematocrit 40.6 % (41-53); Hemoglobin 13.8 g/dL (13.5-17.5); Lymphocytes Absolute Auto 1500 /uL (1100-4500); Lymphocytes Percent Auto 24.6 % (25-40); Mean Corpuscular Hemoglobin 30.2 PG (26-34); Mean Corpuscular Volume 88.8 fL (80-100); Monocytes Absolute Auto 300 /uL (0-900); Monocytes Percent Auto 5.2 % (3-14); Neutrophils Absolute Auto 4100 /uL (1500-7000); Neutrophils Percent Auto 66.7 % (50-75); Platelet Count 160 X10^3/uL (150-400); Red Blood Cell Count 4.57 X10^6/uL (4.5-5.9); Red Cell Distribution Width 15.8 % (11.6-14.8); White Blood Cell Count 6.1 X10^3/uL (4.5-11.0)
[2024-10-07 18:55] LABS: Alanine Aminotransferase 22 IU/L (<50); Albumin 4.2 g/dL (3.5-5.0); Albumin Globulin Ratio 1.5 (1.0-2.8); Alkaline Phosphatase 50 U/L (38-126); Aspartate Aminotransferase 70 IU/L (17-59); BUN Creatinine Ratio 22.3 (6-22); Bilirubin Total 0.6 mg/dL (0.2-1.3); Blood Urea Nitrogen 27 mg/dL (9-20); Calcium 9.2 mg/dL (8.4-10.2); Carbon Dioxide 29 mmol/L (22-32); Chloride 99 mmol/L (98-107); Estimated Glomerular Filt Rate 59 mL/min (>60); Globulin 2.8 g/dL (1.7-4.1); Glucose 127 mg/dL (80-110); HEMOLYSIS < 15 (0-50); Potassium 3.8 mmol/L (3.4-5.1); Sodium 137 mmol/L (137-145); Uric Acid 6.3 mg/dL (3.5-8.5)
[2024-10-07 19:04] LABS: Percent Iron Saturation 21 % (20-50); Total Iron Binding Capacity 321 ug/dL (261-462); Transferrin 266 mg/dL (206-381)
[2024-10-07 19:34] LABS: Ferritin 15 ng/mL (18-464)
== END ==
PROVIDERS: PCP Family Medicine; Visit Provider Family Medicine
DX: R60.0 Localized edema (principal); D64.9 Anemia, unspecified; M17.11 Unilateral primary osteoarthritis, right knee; I10 Essential (primary) hypertension
CPT/HCPCS: 80053; 82728; 83540; 83550; 84550; 85025

== ENCOUNTER → 2024-12-11 11:28 | Outpatient (CLI) | payer MEDICARE, OTHER, SELFPAY ==
[2024-12-11 18:58] LABS: Hematocrit 40.5 % (41-53); Hemoglobin 13.9 g/dL (13.5-17.5)
[2024-12-11 19:11] LABS: Alanine Aminotransferase 17 IU/L (<50); Albumin 4.2 g/dL (3.5-5.0); Albumin Globulin Ratio 1.8 (1.0-2.8); Alkaline Phosphatase 50 U/L (38-126); Aspartate Aminotransferase 29 IU/L (17-59); Bilirubin Total 0.6 mg/dL (0.2-1.3); Blood Urea Nitrogen 27 mg/dL (9-20); Calcium 9.1 mg/dL (8.4-10.2); Carbon Dioxide 29 mmol/L (22-32); Chloride 101 mmol/L (98-107); Estimated Glomerular Filt Rate > 60 mL/min (>60); Globulin 2.3 g/dL (1.7-4.1); Glucose 123 mg/dL (70-99); HEMOLYSIS < 15 (0-50); Iron 80 ug/dL (49-181); Potassium 3.7 mmol/L (3.4-5.1); Sodium 136 mmol/L (137-145); Total Protein 6.5 g/dL (6.3-8.2)
[2024-12-11 19:22] LABS: Percent Iron Saturation 26 % (20-50); Total Iron Binding Capacity 312 ug/dL (261-462); Transferrin 260 mg/dL (206-381)
[2024-12-11 19:27] LABS: Hemoglobin A1C% w Est Avg Glu 5.8 % (4.0-6.0)
[2024-12-11 19:46] LABS: Ferritin 23 ng/mL (18-464)
== END ==
PROVIDERS: PCP Family Medicine; Visit Provider Family Medicine
DX: R73.9 Hyperglycemia, unspecified (principal); D64.9 Anemia, unspecified; R94.4 Abnormal results of kidney function studies; R74.01 Elevation of levels of liver transaminase levels
CPT/HCPCS: 80053; 82728; 83036; 83540; 83550; 85014; 85018

== ENCOUNTER → 2025-05-11 10:40 | Outpatient (CLI) | payer MEDICARE, OTHER, SELFPAY ==
--- NOTE | 2025-05-11 10:42 | DI.US.S_ITS ---
PROCEDURE: US PERIPH VENOUS LOW EXTREM RT
== END ==
PROVIDERS: PCP Family Medicine; Referring Provider Physical Medicine & Rehabilitation; Visit Provider Physical Medicine & Rehabilitation
DX: M79.604 Pain in right leg (principal); Z86.718 Personal history of other venous thrombosis and embolism
CPT/HCPCS: 93971

== ENCOUNTER 2025-05-20 10:56 | Outpatient (CLI) | payer MEDICARE, OTHER, SELFPAY ==
[2025-05-20 11:40] VITALS: BP 129/61; PULSE 59; RESP 16; TEMP 36.4; O2SAT 94
[2025-05-20 12:07] VITALS: BP 126/60; PULSE 65; RESP 16; O2SAT 95
[2025-05-20] MEDS: TRIAMCINOLONE 40 MG/ML VIAL INJ (12:09)
[2025-05-20] MEDS: LIDOCAINE 1% 20 ML 10 ML INJ (12:10)
[2025-05-20 12:11] VITALS: BP 124/58; PULSE 59; RESP 16; O2SAT 94
[2025-05-20 12:20] VITALS: BP 124/63; PULSE 60; RESP 16; O2SAT 97
--- NOTE | 2025-05-20 13:26 | PM.PROC.IR.1 ---
Date/Time/Diagnoses Date of procedure: 05/20/25 Time of procedure: 11:45 Pre-procedure diagnosis: Left hip osteoarthritis, left hip pain Post-procedure diagnosis: same Procedure Notes Procedure: Left hip joint injection Indications: Left hip osteoarthritis, left hip pain Physician: Asher Mann Total sedation minutes: 0 Complications: none Procedure in detail & Post-procedure care: Patient is here for the planned procedure today as noted. No significant change since the last office visit. For additional clinical scenario please see those office notes. Focused exam: Vital signs reviewed as charted on intake. Gen: Well developed. No acute distress. CV: RRR, no M/R/G Chest: Non-labored breathing, CTAB. Psych: Alert and well-oriented. Mood/Affect: normal. Patient suitable for the planned procedure today: Yes === The following procedure was performed today: Hip joint injection under fluoroscopic guidance (lateral approach) (70172, [id number]) Approach: Lateral Laterality: Left Soft tissue: [1% lidocaine 2 mL] Injectate: [Triamcinolone 1 mL (40 mg/mL) in 7 mL of 1% lidocaine] Fluoroscopy Agent: Isovue 300-M 1 mL Notes: History right DORYS. Note he is on apixaban, he chose to hold this, last dose Sunday05/18/2025 at 9:00 p.m. Associated increased bleeding risks discussed and he would like to proceed. He may resume this evening. 3.5 in 22 gauge spinal needle utilized and just adequate. For repeat would recommend 5 in. Preprocedure pain 8/10, postprocedure pain 0/10. Procedure: The patient was prepped and draped in a sterile fashion after being placed in the side-lying position. A lateral fluoroscopic view of the hip was obtained. After skin preparation, a 25 gauge needle was used to anesthetize the skin with the anesthetic noted above. A 22 gauge spinal needle was inserted with fluoroscopic guidance to contact periosteum at the femoral head-neck junction, confirmed with multiplanar views. Then, the contrast noted above was injected and a partial hip arthrogram was obtained. The anesthetic/steroid solution noted above was slowly injected into the hip joint. The needle was withdrawn. Appropriate radiographs were obtained. The patient tolerated the procedure well and was discharged after an appropriate period of observation. If there are any complications, the patient was instructed to call us. The patient is to follow-up with the referring provider in 2-3 weeks/as planned. This note was compiled using voice recognition software and therefore may contain typos. Please contact the author with any questions or concerns.
--- OUTSIDE RECORDS SUMMARY | 2025-05-22 15:26 | XMS_ITS | Referral Summary ---
Author Organization [employer] [facility] Address [address] [place] [address] Care Team Providers Care Executive Pilot Name Role Phone Primary, Name Unknown Primary Care Provider Unav ailable Allergies Active Allergy Reactions Criticality Noted Date Comments Penicillins 08/07/2015 Doesn't know allergy reaction, childhood allergy Medications rOPINIRole (REQUIP) 0.5 MG tablet Take 0.5 mg by mouth. 01/05/2020 Active warfarin (COUMADIN) 5 MG tablet Take 5-7.5 mg by mouth. 11/25/2019 Active rosuvastatin (CRESTOR) 40 MG tablet Take 40 mg by mouth. 12/31/2019 Active omeprazole (PRILOSEC) 20 MG capsule Take 20 mg by mouth. Active cholecalciferol (VITAMIN D3) 1,250 mcg (50,000 unit) capsule Take 50,000 Units by mouth. Active Social History Tobacco Use Types Packs/Day Years Used Date Smoking Tobacco: Former Smokeless Tobacco: Never Alcohol Use Standard Drinks/Week Comments No 0 (1 standard drink = 0.6 oz pur e alcohol) AUDIT-C Answer Date Recorded Frequency of Alcohol Consumption Never 01/08/2020 Average Number of Drinks Not on file 020 Frequency of Binge Drinking Not on file 03/2020 Sex and Gender Information Value Date Recorded Sex Assigned at Not on file Legal Sex Male 2:12 PM PST Gender Identity Not on file Sexual Orientation Not on file Last Filed Vital Signs Vital Sign Reading Time Taken Comments Blood Pressure 124/70 01/08/2020 3:14 PM PDT Pulse 56 01/08/2020 3:14 PM PDT Temperature 36.4 C (97.6 F) 01/08/2020 3:14 PM PDT Respiratory Rate 16 01/08/2020 3:14 PM PDT Oxygen Saturation 97% 01/08/2020 3:14 PM PDT Inhaled Oxygen Concentration - - Weight 83.9 kg (185 lb) 08/07/2015 2:20 PM PST Height 172.7 cm (5' 8) 08/07/2015 2:20 PM PST Body Mass Index 28.13 08/07/2015 2:20 PM PST Plan of Treatment Not on file Insurance [employer] [place] MEDICARE [employer] MEDICARE PART A & B Care Teams Executive Pilot Relationship Specialty Start Date End Date Primary, Name [place] [address] PCP - General 08/07/15
--- OUTSIDE RECORDS SUMMARY | 2025-05-22 15:26 | XMS_ITS | Encounter Summary ---
Author Organization [facility] Address [address] [place] [address] Care Team Providers Care Client Director Name Role Phone Kirk Prado Primary Care Provider Unavaila ble Adi Cleveland MD Primary Care Provider [phone] [facility] Primary Care Provide r Rey Patel DO Unavailable [phone] [place] [address] Primary Care [facility] Primary Care Provide r Adi Cleveland MD Primary Care Provider Jeanette Jaimes MD Primary Care Provide r Encounter Details Date Type Department Care Team ([facility] Contact Info) Description 02/10/2008 Scanned Document SCANNED ONLY Scanned, Document Social History Tobacco Use Types Packs/Day Years Used Date Smoking Tobacco: Never Assessed Sex and Gender Information Value Date Recorded Sex Assigned at Not on file Legal Sex Male 9:15 PM PDT Gender Identity Not on file Sexual Orientation Not on file documented as of this encounter Plan of Treatment Not on file documented as of this encounter Visit Diagnoses Not on filedocumented in this encounter Care Teams Client Director Relationship Specialty Start Date End Date Kirk Prado PCP - General 02/12/13 08/19/15 Adi Cleveland MD [address] [place] [address] PCP - General Family Medicine 08/20/15 11/27/20 [facility] [address] [place] [address] [address] [place], [place] [phone] PCP - General 11/28/20 07/06/21 Rey Patel DO [facility] [address] [place] [address] [address] [place] [address] PCP - Patient Reported PCP Family Medicine 06/09/21 [facility] [address] [phone] PCP - General 07/07/21 07/23/24 Adi Cleveland MD [address] [place] [id number] PCP - General Family Medicine 07/24/24 10/21/24 Jeanette Jaimes MD [address] [place], [place] [phone] PCP - General Family Medicine 10/22/24 documented as of this encounter
--- OUTSIDE RECORDS SUMMARY | 2025-05-22 15:26 | XMS_ITS | Clinical Summary ---
Author Organization [facility] Address [address] [place] [address] Care Team Providers Care Mesmerist Name Role Phone Pcp, None Selected Primary Care Provider Unavail able Encounters Date Type Department Care Team Description 03/10/2025 Telephone [facility] [place] [address] Daquan Novak MD from Last 3 Months Social History Tobacco Use Types Packs/Day Years Used Date Smoking Tobacco: Never Assessed Sex and Gender Information Value Date Recorded Sex Assigned at Not on file Legal Sex Male 4:59 PM PDT Gender Identity Not on file Sexual Orientation Not on file Plan of Treatment Upcoming Encounters Date Type Department Care Team (Late st Contact Info) Description 06/04/2025 2:00 PM PST Office Visit [facility] - Sleep Medicine [address] [facility] [address] [place] [address] Daquan Novak MD [address] [place] [address] Health Maintenance Due Date Last Done Comments Medicare Annual Wellness (AWV) 1940 Depression Screening (PHQ-2) 1953 DTaP,Tdap,and Td Vaccines (1 - Tdap) 1960 HM Pneumococcal Adult 50+ (1 of 1 - PCV) 09/02/1991 Zoster Vaccines (1 of 2) 09/02/1991 Fall Risk Screening 2006 RSV Patients Over 60 years O R qualifying ( Patients) (1 - 1-dose 75+ series) 2016 COVID-19 Vaccine (2024-2 6 season) 2025 Influenza Vaccine (#1) 2025 HPV Vaccines Aged Out No longer eligi ble based on patient's age to complete this topic Hepatitis A Vaccines Aged Out No long er eligible based on patient's age to complete this topic Hepatitis B Vaccines Aged Out No long er eligible based on patient's age to complete this topic IPV Vaccines Aged Out No longer eligi ble based on patient's age to complete this topic MMR Vaccines Aged Out No longer eligi ble based on patient's age to complete this topic Insurance MEDICARE PART A AND B [facility] Care Teams Mesmerist Relationship Specialty Start Date End Date Pcp, None Selected PCP - General 10/16/24
--- OUTSIDE RECORDS SUMMARY | 2025-05-22 15:26 | XMS_ITS | Clinical Summary ---
Author Organization [facility] Address [address] [place] [address] Care Team Providers Care Transportation Sales Consultant Name Role Phone Primary, Name Unknown Primary [...] MEDICARE PART A & B Care Teams Transportation Sales Consultant Relationship Specialty Start Date End Date Primary, Name [place] [address] PCP - General 08/07/15
--- OUTSIDE RECORDS SUMMARY | 2025-05-22 15:26 | XMS_ITS | Encounter Summary ---
Author Organization Address [address], [place] [address] Care Team Providers Care Chief Minister Name Role Phone Kirk Prado Primary Care Provider Unavaila ble Adi Cleveland MD Primary Care Provider [facility] Primary Care Provide r Rey Patel DO Unavailable [phone] Primary Care [facility] Primary Care Provide r Adi Cleveland MD Primary Care Provider Jeanette Jaimes MD Primary Care Provide r Encounter Details Date Type Department Care Team (Late st Contact Info) Description 09/15/2011 Historical Encounter HISTORIC_CONVERSION [address] [place] [address] Silvano Hopkins MD [address] [place] [address] [place] [id number] Social History Tobacco Use Types Packs/Day Years Used Date Smoking Tobacco: Never Assessed Sex and Gender Information Value Date Recorded Sex Assigned at Not on file Legal Sex Male 9:15 PM PDT Gender Identity Not on file Sexual Orientation Not on file documented as of this encounter Progress Notes * Silvano Hopkins MD - 09/15/2011 11:00 AM PDT Colonoscopy Report Endoscopist(s): Silvano Hopkins Jr, MD Date: Thursday, September 15, 2011 Ref. Phys.: Adi Cleveland MD Patient: Doron Chris Instrument: [id number] Adult Variable Stiffness ([id number]) Date: 1940 (71 years) ASA Class: P2 account: [id number] Medications: Fentanyl 50 micrograms Midazolam 1mg See EGD Note Indications: Screening - average risk, colon cancer Procedure: The procedure, indications, preparation and potential complications were explained to the patient, who indicated his understanding and signed the corresponding consent forms. A physical exam was performed. The patient was administered conscious sedation. Supplemental oxygen was used. The patient was placed in the left lateral decubitus position.The digital exam was normal. The colonoscope was introduced through the rectum and advanced under direct visualization until the ileum was reached. The appendiceal orifice and ileo-cecal valve were identified. Careful visualization of the colon was performed as the colonoscope was withdrawn. The colonoscope was retroflexed within the rectum. The anus appeared normal. The proximal sigmoid and distal sigmoid appeared normal. Two sessile polyps of benign appearance and ranging in size from 3 mm to 4 mm were found in the ascending colon and proximal transverse colon. Single-piece polypectomies were performed using a cold snare. The polyps were completely removed. The procedure was not difficult. The quality of the preparation was good. The patient tolerated the procedure well. There were no complications. Findings: Protruding Lesions Two sessile polyps of benign appearance and ranging in size from 3 mm to 4 mm were found in the ascending colon and proximal transverse colon. Single-piece polypectomies were performed using a cold snare. The polyps were completely removed. Three sessile polyps of benign appearance and ranging in size from 1 mm to 2 mm were found in the sigmoid colon and rectum. Single-piece polypectomies were performed using a cold forceps. The polyps were completely removed. Small grade 1 internal hemorrhoids were noted. Excavated Lesions A few diverticula were seen in the sigmoid colon. Diverticulosis appeared to be of mild severity. Impression: Polyps in the ascending colon and proximal transverse colon (polypectomy)Polyps in the sigmoid colon and rectum (polypectomy)Grade 1 internal hemorrhoidsDiverticulosis of the sigmoid colon Recommendations: I will send a letter to the patient and referring doctor with the biopsy results and discuss further plan based on those findings. Silvano Hopkins Jr, MD Patient: Doron Chris ([id number]) * Silvano Hopkins MD - 09/15/2011 11:00 AM PDT EGD Report Endoscopist(s): Silvano Hopkins Jr, MD Date: Thursday, September 15, 2011 Ref.Phys.: Adi Cleveland MD Patient: Doron Chris Instrument: Q180 (607) Date: 1940 (71 years) ASA Class: P2 account: [id number] Medications: Fentanyl 100 micrograms Midazolam 4mg Indications: Gastroesophageal reflux disease Procedure: The procedure, indications, preparation and potential complications were explained to the patient, who indicated his understanding and signed the corresponding consent forms. A physical exam was performed. The patient was administered conscious sedation. Supplemental oxygen was used. The patient was placed in the left lateral decubitus position and an endoscope was introduced through the mouth and advanced under direct visualization until the third part of the duodenum was reached. Careful visualization of the upper GI tract was performed. The vocal cords were visualized. The upper, middle and lower third part of the esophagus appeared normal. The gastro-esophageal junction and cardia appeared normal. The procedure was not difficult. The patient tolerated the procedure well. There were no complications. 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 Cold forceps biopsies were performed for histology. Stomach: Mucosa: Normal mucosa was noted in the whole stomach. Protruding Lesions Many mixed non-bleeding polyps of benign appearance and ranging in size from 3 mm to 20 mm were found in the stomach body and fundus. Cold forceps biopsies were performed for histology. Duodenum: Mucosa: Normal mucosa was noted in the whole duodenum. Other procedures: A cold forceps biopsy was performed for histology at the second part of the duodenum.Cold forceps biopsies were performed for histology at the stomach antrum and stomach body and incisura. 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 Hopkins will notify you regarding the biopsy results. Silvano Hopkins Jr, MD Patient: Doron Chris ([id number]) documented in this encounter Plan of Treatment Not on file documented as of this encounter Visit Diagnoses Not on filedocumented in this encounter Care Teams Chief Minister Relationship Specialty Start Date End Date Kirk Prado PCP - General 02/12/13 08/19/15 Adi Cleveland MD [address] [place], [place] [phone] PCP - General Family Medicine 08/20/15 11/27/20 [facility] [address] [id number] PCP - General 11/28/20 07/06/21 Rey Patel DO [address] [id number] PCP - Patient Reported PCP Family Medicine 06/09/[address] [phone] PCP - General 07/07/21 07/23/24 Adi Cleveland MD [address] [place] [address] PCP - General Family Medicine 07/24/24 10/21/24 Jeanette Jaimes MD [address] [place] [address] PCP - General Family Medicine 10/22/24 documented as of this encounter
--- OUTSIDE RECORDS SUMMARY | 2025-05-22 15:26 | XMS_ITS | Encounter Summary ---
Author Organization [facility] Address [address] [place] [address] Care Team Providers Care Cart Pusher Name Role Phone Yvonne Patelevelyn Shultz DO Unavailable [phone] [place] [address] Primary Care [facility] Primary Care Provide r Adi Cleveland MD Primary Care Provider [phone] Jeanette Jaimes MD Primary Care Provide r Encounter Details Date Type Department Care Team (Late st Contact Info) Description 12/29/2021 Order Functional Director NEUROLOGY - [place], [place] - [facility] [address] [place] [id number] Randy Olmstead MD [address] [phone] Social History Tobacco Use Types Packs/Day Years Used Date Smoking Tobacco: Former Cigarettes Q uit: 1970 Smokeless Tobacco: Never Alcohol Use Standard Drinks/Week Comments Not Currently 0 (1 standard drink = 0.6 oz pur e alcohol) Sex and Gender Information Value Date Recorded Sex Assigned at Not on file Legal Sex Male 9:15 PM PDT Gender Identity Not on file Sexual Orientation Not on file documented as of this encounter Plan of Treatment Not on file documented as of this encounter Visit Diagnoses Not on filedocumented in this encounter Care Teams Cart Pusher Relationship Specialty Start Date End Date Rey Patel DO [address] [address] PCP - Patient Reported PCP Family Medicine 06/09/21 [facility] [address] [place], [place] [phone] PCP - General 07/07/21 07/23/24 Adi Cleveland MD [address] [place], [place] [phone] PCP - General Family Medicine 07/24/24 10/21/24 Jeanette Jaimes MD [address] [place], [place] [phone] PCP - General Family Medicine 10/22/24 documented as of this encounter
--- OUTSIDE RECORDS SUMMARY | 2025-05-22 15:26 | XMS_ITS | Clinical Summary ---
Author Organization [facility] Address [address] [place] [address] Care Team Providers Care Patient Relations Representative Name Role Phone Jeanette Jaimes MD Primary Care Provide r Allergies Active Allergy Reactions Criticality Noted Date Comments Hydromorphone Hallucinations 04/20/2022 Penicillins Rash Low 08/07/2015 Doesn't know allergy reaction, childhood allergy States last had medication when he was a child; and doesn't recall the reaction Medications Pramipexole Dihydrochloride (MIRAPEX) 0.75 MG Tab Take 2 Tablets (1.5mg) by mouth at bedtime. 180 Tablet 05/08/2023 4:17 PM PST 10/27/19 23 Active lamotrigine (LAMICTAL) 25 MG Tab take 4 tablets by mouth twice a day (morning and at night). may go back to 5 tablets two times a day if needed. 300 Tablet 05/09/2023 2:50 PM PST 10/13/19 23 Active omeprazole (PRILOSEC) 20 MG Capsule Delayed Release Take 2 Capsules by mouth once daily. Active albuterol (PROVENTIL HFA) 90 mcg/act Aero Soln 2 Puffs by Inhalation route every 6 hours as needed. Active rosuvastatin (CRESTOR) 40 mg Tab Take 1 Tablet by mouth each evening. Active apixaban (ELIQUIS) 5 MG Tab Take by mouth twice daily. Active umeclidinium-vilant vicki (ANORO ELLIPTA) 62.5-25 MCG/ACT Aerosol Powder, Breath Act Inhale by mouth once daily. Active gabapentin (NEURONTIN) 100 MG Caps Take 1 Capsule by mouth three times a day as needed for pain. Active hydrochlorothiazide 25 MG Tab Take 1 Tablet by mouth once daily. Active metoprolol succinate (TOPROL XL) 25 MG Tablet SR 24 HR Take 1 Tablet by mouth once daily. Active spironolactone (ALDACTONE) 25 MG Tab Take 1 Tablet by mouth once daily. Active diazepam (VALIUM) 2 MG Tab 10/08/19 Active Active Problems Problem Noted Date Diagnosed Date Essential hypertension, benign 04/24/2022 Paroxysmal atrial fibrillation 04/24/2022 Dyspnea 04/24/2022 Partial seizure 09/05/2021 Sensorineural hearing loss (SNHL) of both ears 1 07/10/2019 Vertigo 05/10/2020 Hyperlipidemia LDL goal <100 12/31/2019 Transient ischemic attack 12/31/2019 DVT (deep venous thrombosis) 08/03/2015 Overview (11/29/2023): Lower limb Lower limb Migraine variant 10/13/2013 Social History Tobacco Use Types Packs/Day Years Used Date Smoking Tobacco: Former Cigarettes Tobacco Cessation:Counseling Given: Not Answered Sex and Gender Information Value Date Recorded Sex Assigned at Not on file Legal Sex Male 3:59 PM PST Gender Identity Not on file Sexual Orientation Not on file Last Filed Vital Signs Vital Sign Reading Time Taken Comments Blood Pressure 126/68 12/04/2023 2:13 PM PDT Pulse 69 12/04/2023 2:13 PM PDT Temperature - - Respiratory Rate - - Oxygen Saturation 96% 12/04/2023 2:13 PM PDT Inhaled Oxygen Concentration - - Weight 59.4 kg (131 lb) 12/04/2023 2:13 PM PDT Height 172.7 cm (5' 8) 12/04/2023 2:13 PM PDT Body Mass Index 19.92 12/04/2023 2:13 PM PDT Plan of Treatment Health Maintenance Due Date Last Done Comments Depression Screening 1940 IMM: Pneumococcal Vaccine (1 of 1 - PCV) 09/02/1991 IMM: SHINGRIX (1 of 2) 09/02/1991 IMM: DTAP/TDAP/TD (2 - Td or Tdap) 04/19/2015 04/19/2005, 02/05/2003 IMM: RSV ( patients and Patients AGE > 60 YEARS OLD) (1 - 1-dose 75+ series) 2016 Advance Care Planning 07/02/2024 Screen for Fall Risk (>65Y) 07/02/2024 IMM: INFLUENZA (AGE > 6 MONTHS) (#1) 03/02/2025 04/26/2021, 04/22/2019 IMM: HEPATITIS A Aged Out No longer e ligible based on patient's age to complete this topic IMM: HEPATITIS B Aged Out No longer e ligible based on patient's age to complete this topic IMM: MENINGOCOCCAL ACWY Aged Out No l onger eligible based on patient's age to complete this topic IMM: RSV (AGE < 20 MONTHS) Aged Out N o longer eligible based on patient's age to complete this topic Insurance MEDICARE [facility] MEDIOPHIEM SUPPLEMENT [facility] [place] [phone] Care Teams Patient Relations Representative Relationship Specialty Start Date End Date Jeanette Jaimes MD [address] [place] [address] PCP - General Family Medicine 11/28/23
--- OUTSIDE RECORDS SUMMARY | 2025-05-22 15:26 | XMS_ITS | Encounter Summary ---
Author Organization [facility] Address [address] [address] Care Team Providers Care Career Advisor Name Role Phone Kirk Prado Primary Care Provider Unavaila ble Adi Cleveland MD Primary Care Provider [facility] Primary Care Provide r Rey Patel DO Unavailable [phone] [place] [address] Primary Care [facility] Primary Care Provide r Adi Cleveland MD Primary Care Provider Jeanette Jaimes MD Primary Care Provide r Encounter Details Date Type Department Care Team (Late st Contact Info) Description 05/08/2012 Historical Encounter HISTORIC_CONVERSION [address] [place] [address] Scanned, Document Social History Tobacco Use Types [...] on filedocumented in this encounter Care Teams Career Advisor Relationship Specialty Start Date End Date Kirk Prado PCP - General 02/12/13 08/19/15 Adi Cleveland MD [address] [place] [address] PCP - General Family Medicine 08/20/15 11/27/20 [facility] [address] [facility] [address] [place], [place] [address] PCP - General 11/28/20 07/06/21 Rey Patel DO 1213 [facility] [address] [place], [place] [phone] PCP - Patient Reported PCP Family Medicine 06/09/[address] [phone] PCP - General 07/07/21 07/23/24 Adi Cleveland MD [address] [place], [place] [address] PCP - General Family Medicine 07/24/24 10/21/24 Jeanette Jaimes MD [address] [place], [place] [phone] PCP - General Family Medicine 10/22/24 documented as of this encounter
--- OUTSIDE RECORDS SUMMARY | 2025-05-22 15:26 | XMS_ITS | Encounter Summary ---
Author Organization [facility] Address [address] [place] [address] Care Team Providers Care Patient Navigator Name Role Phone Kirk Prado Primary Care Provider Unavaila ble Adi Cleveland MD Primary Care Provider [facility] Primary Care Provide r Rey Patel DO Unavailable [phone] [place] [address] Primary Care [facility] Primary Care Provide r Adi Cleveland MD Primary Care Provider Jeanette Jaimes MD Primary Care Provide r Encounter Details Date Type Department Care Team (Late st Contact Info) Description 05/08/2012 Historical Encounter HISTORIC_CONVERSION [address] [place] [address] Social History Tobacco Use Types Packs/Day Years Used Date Smoking Tobacco: Never Assessed Sex and Gender Information Value Date Recorded Sex Assigned at Not on file Legal Sex Male 9:15 PM PDT Gender Identity Not on file Sexual Orientation Not on file documented as of this encounter Last Filed Vital Signs Vital Sign Reading Time Taken Comments Blood Pressure 140/74 05/08/2012 4:28 PM PST Pulse - - Temperature - - Respiratory Rate - - Oxygen Saturation - - Inhaled Oxygen Concentration - - Weight 89.4 kg (197 lb) 05/08/2012 11:43 AM PST Height 172.7 cm (5' 8) 05/08/2012 11:43 AM PST Body Mass Index 29.95 05/08/2012 11:43 AM PST documented in this encounter Plan of Treatment Not on file documented as of this encounter Visit Diagnoses Not on filedocumented in this encounter Care Teams Patient Navigator Relationship Specialty Start Date End Date JohanKirk PCP - General 02/12/13 08/19/15 Adi Cleveland MD [address] [place], [place] [phone] PCP - General Family Medicine 08/20/15 11/27/20 [facility] [address] [id number] PCP - General 11/28/20 07/06/21 Rey Patel DO [address] [phone] PCP - Patient Reported PCP Family Medicine 06/09/21 [facility] Care [address] [phone] PCP - General 07/07/21 07/23/24 Adi Cleveland MD [address] [place], [place] [phone] PCP - General Family Medicine 07/24/24 10/21/24 Jeanette Jaimes MD [address] [place], [place] [phone] PCP - General Family Medicine 10/22/24 documented as of this encounter
--- OUTSIDE RECORDS SUMMARY | 2025-05-22 15:26 | XMS_ITS | Encounter Summary ---
Author Organization [facility] Address [address] [place] [address] Care Team Providers Care Plating Stripper Name Role Phone Kirk Prado Primary Care Provider Unavaila ble Adi Cleveland MD Primary Care Provider [phone] [facility] Primary Care Provide r Rey Patel DO Unavailable [phone] [place] [address] Primary Care [facility] Primary Care Provide r Adi Cleveland MD Primary Care Provider [phone] Jeanette Jaimes MD Primary Care Provide r Encounter Details Date Type Department Care Team ([facility] Contact Info) Description 08/12/2015 Scanned Document SCANNED ONLY Scanned, Document Social [...] on filedocumented in this encounter Care Teams Plating Stripper Relationship Specialty Start Date End Date Kirk Prado PCP - General 02/12/13 08/19/15 Adi Cleveland MD [address] [place] [address] PCP - General Family Medicine 08/20/15 11/27/20 [facility] [address] [place] [address] [address] [place], [place] [id number] PCP - General 11/28/20 07/06/21 Rey Patel DO [facility] [address] [place] [address] [address] [place] [address] PCP - Patient Reported PCP Family Medicine 06/09/21 [facility] [address] [id number] PCP - General 07/07/21 07/23/24 Adi Cleveland MD [address] [place] [id number] PCP - General Family Medicine 07/24/24 10/21/24 Jeanette Jaimes MD [address] [place], [place] [phone] PCP - General Family Medicine 10/22/24 documented as of this encounter
--- OUTSIDE RECORDS SUMMARY | 2025-05-22 15:26 | XMS_ITS | Encounter Summary ---
Author Organization [facility] Address [address] [place] [address] Care Team Providers Care Mine Car Repairer Name Role Phone Yvonne Patelevelyn Shultz DO Unavailable [phone] [place] [facility] Primary Care Provide r Adi Cleveland MD Primary Care Provider [phone] Jeanette Jaimes MD Primary Care Provide r Encounter Details Date Type Department Care Team (Late st Contact Info) Description 04/20/2022 Abstract CARDIOLOGY [place] [address] [place] [address] Michoacano Dawkins MD [address] [place] [address] Social History Tobacco Use Types Packs/Day Years Used Date Smoking Tobacco: Former Cigarettes Q uit: 1970 Smokeless Tobacco: Never Tobacco Cessation:Counseling Given: Not Answered Alcohol Use Standard Drinks/Week Comments Not Currently [...] on filedocumented in this encounter Care Teams Mine Car Repairer Relationship Specialty Start Date End Date Rey Patel DO [address] [address] PCP - Patient Reported PCP Family Medicine 06/09/21 [facility] [address] [place], [place] [id number] PCP - General 07/07/21 07/23/24 Adi Cleveland MD [address] [place], [place] [phone] PCP - General Family Medicine 07/24/24 10/21/24 Jeanette Jaimes MD [address] [place], [place] [phone] PCP - General Family Medicine 10/22/24 documented as of this encounter
--- OUTSIDE RECORDS SUMMARY | 2025-05-22 15:26 | XMS_ITS | Encounter Summary ---
Author Organization [facility] Address [facility] [address] Care Team Providers Care Ceramics Instructor Name Role Phone Rey Patel DO Unavailable [phone] [place] [facility] Primary Care Provide r Adi Cleveland MD Primary Care Provider [phone] Jeanette Jaimes MD Primary Care Provide r Encounter Details Date Type Department Care Team (Late st Contact Info) Description 12/19/2021 Scanned Document SCANNED ONLY Scanned, Document Social [...] on filedocumented in this encounter Care Teams Ceramics Instructor Relationship Specialty Start Date End Date Rey Patel DO [address] [place] [id number] PCP - Patient Reported PCP Family Medicine 06/09/21 [place] [facility] 7 [place] [address] PCP - General 07/07/21 07/23/24 Adi Cleveland MD [address] [place], [place] [address] PCP - General Family Medicine 07/24/24 10/21/24 Jeanette Jaimes MD [address] [place] [address] PCP - General Family Medicine 10/22/24 documented as of this encounter
--- OUTSIDE RECORDS SUMMARY | 2025-05-22 15:27 | XMS_ITS | Clinical Summary ---
Author Organization [facility] Address [address] [place] [address] Care Team Providers Care Sales Representative Sales Manager Name Role Phone Adi Cleveland MD Primary Care Provider [phone] Allergies Active Allergy Reactions Criticality Noted Date Comments Penicillins Low 06/22/2017 Medications Albuterol Sulfate HFA 108 (90 Base) MCG/ACT Inhalation Aero Soln Inhale 2 puffs by mouth. Active Cholecalciferol (VITAMIN D3) 80012 units Oral Cap Take 50,000 Units by mouth one time a week. Active Diclofenac Sodium 1 % Transdermal Gel Apply 2 g to affected area on hand(s) 4 times a day as needed. Active Omeprazole 10 MG Oral CAPSULE DELAYED RELEASE Take 20 mg by mouth daily on an empty stomach. Active Ferrous Gluconate (IRON 27 OR) Take by mouth daily. Active zoster vaccine recombinant 50 MCG/0.5ML injectionIndica tions:Need for vaccination Inject 0.5 mL (50 mcg) intramuscularly once. Administer a second dose 2 to 6 months after the first dose. 0.5 mL 1 08/11/19 20 Active rosuvastatin 40 MG tabletIndicatio ns:Cerebrovascu lar accident (CVA), unspecified mechanism (HCC) Take 1 tablet (40 mg) by mouth daily. 90 tablet 3 02/28/20 20 Active diazePAM 2 MG tabletIndicatio ns:Vertigo Take 1 tablet (2 mg) by mouth every 4 hours as needed. For vertigo 30 tablet 1 05/10/20 20 Active warfarin 5 MG tabletIndicatio ns:Other acute pulmonary embolism without acute cor pulmonale (HCC) Take 5 mg by mouth daily except Sunday and Sunday take 7.5 mg daily 120 tablet 11 09/01/19 21 Active rOPINIRole 1 MG tabletIndicatio ns:RLS (restless legs syndrome) Take 1 tablet (1 mg) by mouth 3 times a day. 90 tablet 5 09/01/19 21 Active Active Problems Problem Noted Date Diagnosed Date Sensorineural hearing loss, bilateral 05/10/2020 Vertigo 05/10/2020 Transient ischemic attack 12/31/2019 Hyperlipidemia LDL goal <100 12/31/2019 History of pulmonary embolus (PE) 12/31/2019 computer terminal operator (current) use of anticoagulants [Z79.0 1] 01/08/2018 Bilateral hearing loss due to cerumen impaction 08/21/2017 DVT (deep venous thrombosis) 08/03/2015 Overview (12/10/2017): Lower limb Migraine variant 10/13/2013 Immunizations Immunization Administration Dates Next Due Influenza quadrivalent PF 04/22/2019 Td 2 Lf tetanus toxoid 02/05/2003 Tdap 04/19/2005 Family History Relation Status Comments Brother Alive Father Maternal Grandfather Maternal Grandmother Mother Paternal Grandfather Paternal Grandmother Sister Alive Social History Tobacco Use Types Packs/Day Years Used Date Smoking Tobacco: Former Cigarettes S tarted: 05/10/1975 Smokeless Tobacco: Never Alcohol Use Standard Drinks/Week Comments Not Currently 0 (1 standard drink = 0.6 oz pur e alcohol) Recently stopped Sex and Gender Information Value Date Recorded Sex Assigned at Not on file Legal Sex Male 9:58 AM PST Gender Identity Not on file Sexual Orientation Not on file 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 Not on file Not on file Last Filed Vital Signs Vital Sign Reading Time Taken Comments Blood Pressure 141/76 08/31/2020 2:28 PM PST Pulse 57 08/31/2020 2:28 PM PST Temperature 36.9 C (98.4 F) 08/31/2020 2:28 PM PST Respiratory Rate 17 08/31/2020 2:28 PM PST Oxygen Saturation 97% 08/31/2020 2:28 PM PST Inhaled Oxygen Concentration - - Weight 88.5 kg (195 lb) 03/30/2020 8:43 AM PDT Height 172.7 cm (5' 8) 02/13/2020 9:31 AM PDT Body Mass Index 29.65 02/13/2020 9:31 AM PDT Plan of Treatment Not on file Insurance MEDICARE [facility] MEDICARE [facility] Care Teams Sales Representative Sales Manager Relationship Specialty Start Date End Date Adi Cleveland MD PCP - General Family Practice 05/22/17
--- OUTSIDE RECORDS SUMMARY | 2025-05-22 15:27 | XMS_ITS | Encounter Summary ---
Author Organization [facility] Address [address] [address] Care Team Providers Care Fingerprint Technician Name Role Phone Rey Patel DO [place] [address] Primary Care [facility] Primary Care Provide r Adi Cleveland MD Primary Care Provider [phone] Jeanette Jaimes MD Primary Care Provide r Reason for Referral * Specialty Services (Routine) - Closed Specialty Diagnoses / Procedures Referred By Jesus stoddard Referred To Contact Cardiology Diagnoses Atrial fibrillation, unspecified type (CMS/HCC) Cerebral infarction, unspecified mechanism (CMS/HCC) TIA (transient ischemic attack) Essential hypertension, malignant Procedures [place] OFFICE/OUTPATIENT ESTABLISHED MOD MDM 30-39 MIN Jeanette Ryan PA [address] [place] [address] Phone: tel: fax: CARDIOLOGY [place] [address] [place] [address] Phone: tel: fax: Referral ID Status Reason Start Date Expiration Date Visits Re quested Visits Authorized [id number] Closed 12/16/2021 12/16/2022 1 1 Encounter Details Date Type Department Care Team (Latest Contact Info) Description 12/16/2021 Order Coal Grader CARDIOLOGY - [place], [place] - [facility] [id number] [facility] [address] [place] [address] Jeanette Ryan PA [address] [place], [place] [phone] Atrial fibrillation, unspecified type (CMS/HCC); Cerebral infarction, unspecified mechanism (CMS/HCC); TIA (transient ischemic attack); Essential hypertension, malignant Social History Tobacco Use Types Packs/Day Years [...] as of this encounter Plan of Treatment Scheduled Referrals Name Type Priority Associated Diagnoses Orde r Schedule Ambulatory referral to Cardiology Outpatient Referral Routine Atrial fibrillation, unspecified type (CMS/HCC) Cerebral infarction, unspecified mechanism (CMS/HCC) TIA (transient ischemic attack) Essential hypertension, malignant Ordered: 12/16/2021 documented as of this encounter Visit Diagnoses Diagnosis Atrial fibrillation, unspecified type (CMS/HCC) Cerebral infarction, unspecified mechanism (CMS/HCC) TIA (transient ischemic attack) Unspecified transient cerebral ischemia Essential hypertension, malignant documented in this encounter Care Teams Fingerprint Technician Relationship Specialty Start Date End Date Rey Patel DO [address] [place] [address] PCP - Patient Reported PCP Family Medicine 06/09/21 [place] [facility] [address] [place], [place] [phone] PCP - General 07/07/21 07/23/24 Adi Cleveland MD [address] [place] [phone] PCP - General Family Medicine 07/24/24 10/21/24 Jeanette Jaimes MD [address] [place] [address] PCP - General Family Medicine 10/22/24 documented as of this encounter
--- OUTSIDE RECORDS SUMMARY | 2025-05-22 15:27 | XMS_ITS | Encounter Summary ---
Author Organization [facility] Address [address] [place] [address] Care Team Providers Care Audit Senior Associate Name Role Phone Adi Cleveland MD Primary Care Provider [phone] Jeanette Jaimes MD Primary Care Provide r Encounter Details Date Type Department Care Team (Late st Contact Info) Description 08/29/2024 Scanned Document SCANNED ONLY Scanned, Document Social [...] on filedocumented in this encounter Care Teams Audit Senior Associate Relationship Specialty Start Date End Date Adi Cleveland MD [address] [place] [address] PCP - General Family Medicine 07/24/24 10/21/24 Jeanette Jaimes MD [address] [place] [address] PCP - General Family Medicine 10/22/24 documented as of this encounter
--- OUTSIDE RECORDS SUMMARY | 2025-05-22 15:27 | XMS_ITS | Encounter Summary ---
Author Organization [facility] Address [address] [place] [address] Care Team Providers Care Patient Relations Director Name Role Phone Jeanette Jaimes MD Primary Care Provide r Encounter Details Date Type Department Care Team (Late st Contact Info) Description 11/10/2024 Documentation [facility] NETWORK SUPPORT TECHNICIAN Scanned, Document Social History Tobacco Use Types [...] filedocumented in this encounter Care Teams Patient Relations Director Relationship Specialty Start Date End Date Jeanette Jaimes MD [address] [place] [address] PCP - General Family Medicine 10/22/24 documented as of this encounter
--- OUTSIDE RECORDS SUMMARY | 2025-05-22 15:27 | XMS_ITS | Encounter Summary ---
Author Organization [facility] Address [facility] [address] Care Team Providers Care Medical Billing And Coding Specialist Name Role Phone Rey Patel DO Unavailable [phone] [place] [facility] Primary Care Provide r Adi Cleveland MD Primary Care Provider [phone] Jeanette Jaimes MD Primary Care Provide r Encounter Details Date Type Department Care Team (Late st Contact Info) Description 10/27/2022 Scanned Document SCANNED ONLY Scanned, Document Social [...] on filedocumented in this encounter Care Teams Medical Billing And Coding Specialist Relationship Specialty Start Date End Date Rey Patel DO [address] [place] [phone] PCP - Patient Reported PCP Family Medicine 06/09/21 [place] [facility] 7 [place] [address] PCP - General 07/07/21 07/23/24 Adi Cleveland MD [address] [place], [place] [address] PCP - General Family Medicine 07/24/24 10/21/24 Jeanette Jaimes MD [address] [place] [address] PCP - General Family Medicine 10/22/24 documented as of this encounter
--- OUTSIDE RECORDS SUMMARY | 2025-05-22 15:27 | XMS_ITS | Encounter Summary ---
Author Organization [facility] Address [address] [place] [address] Care Team Providers Care Steel Floor Pan Placing Supervisor Name Role Phone Adi Cleveland MD Primary Care Provider [phone] [facility] Primary Care Provide r Rey Patel DO Unavailable [phone] [place] [address] Primary Care [facility] Primary Care Provide r Adi Cleveland MD Primary Care Provider [phone] Jeanette Jaimes MD Primary Care Provide r Encounter Details Date Type Department Care Team (Latest Contact Info) Description 04/27/2016 Lab Requisition [facility] [employer] - [place] [address] [place] [address] Adi Cleveland, DDS [address] [address] Impaired fasting glucose; Vitamin D deficiency; Hyperlipidemia; Polyosteoarthritis Social History Tobacco Use Types Packs/Day Years Used Date Smoking Tobacco: Never Assessed Sex and Gender Information Value Date Recorded Sex Assigned at Not on file Legal Sex Male 9:15 PM PDT Gender Identity Not on file Sexual Orientation Not on file documented as of this encounter Plan of Treatment Not on file documented as of this encounter Procedures Procedure Name Priority Date/Time Associated Diagnosis Comments *CBC WITH DIFFERENTIAL, LAB GENERATED ORDER Routine 04/27/2016 9:30 AM PDT Impaired fasting glucose Vitamin D deficiency Hyperlipidemia Polyosteoarthritis HEMOGLOBIN A1C Routine 04/27/2016 9:30 AM PDT Impaired fasting glucose Vitamin D deficiency Hyperlipidemia Polyosteoarthritis SEDIMENTATION RATE, WESTERGREN Routine 04/27/2016 9:30 AM PDT Impaired fasting glucose Vitamin D deficiency Hyperlipidemia Polyosteoarthritis CBC WITH DIFFERENTIAL Routine 04/27/2016 9:30 AM PDT Impaired fasting glucose Vitamin D deficiency Hyperlipidemia Polyosteoarthritis VITAMIN D,25-HYDROXY Routine 04/27/2016 9:30 AM PDT Impaired fasting glucose Vitamin D deficiency Hyperlipidemia Polyosteoarthritis C-REACTIVE PROTEIN Routine 04/27/2016 9: 30 AM PDT Impaired fasting glucose Vitamin D deficiency Hyperlipidemia Polyosteoarthritis TSH Routine 04/27/2016 9:30 AM PDT Impaired fasting glucose Vitamin D deficiency Hyperlipidemia Polyosteoarthritis LIPID PANEL Routine 04/27/2016 9:30 AM PDT Impaired fasting glucose Vitamin D deficiency Hyperlipidemia Polyosteoarthritis COMPREHENSIVE METABOLIC PANEL Routine 04/27/2016 9:30 AM PDT Impaired fasting glucose Vitamin D deficiency Hyperlipidemia Polyosteoarthritis documented in this encounter Results * Complete Blood Count with Automated Differential (04/27/2016 9:30 AM PDT) Pathologist [facility] WBC 5.0 4.0 - 11.0 K/uL 04/27/2016 6:41 PM PDT [facility] RBC 5.04 4.31 - 5.77 M/uL 04/27/2016 6:41 PM PDT [facility] HGB 15.1 13.2 - 17.5 g/dL 04/27/2016 6:41 PM PDT [facility] HCT 44.3 38.9 - 49.9 % 04/27/2016 6:41 PM PDT [facility] MCV 87.9 80.0 - 100.0 fL 04/27/2016 6:41 PM PDT [facility] MCH 30.0 27.8 - 33.8 pg 04/27/2016 6:41 PM PDT [facility] MCHC 34.1 31.5 - 36.5 g/dL 04/27/2016 6:41 PM PDT [facility] RDW 13.5 11.5 - 14.2 % 04/27/2016 6:41 PM PDT [facility] Platelets 164 150 - 400 K/uL 04/27/2016 6:41 PM PDT [facility] MPV 10.5 8.5 - 12.4 fL 04/27/2016 6:41 PM PDT [facility] Neutrophils % 53.5 % 04/27/2016 6:41 PM PDT [facility] Immat Gran % 0.4 % 04/27/2016 6:41 PM PDT [facility] Lymphocytes % 31.9 % 04/27/2016 6:41 PM PDT [facility] Monocytes % 8.0 % 04/27/2016 6:41 PM PDT [facility] Eosinophils % 5.4 % 04/27/2016 6:41 PM PDT [facility] Basophils % 0.8 % 04/27/2016 6:41 PM PDT [facility] Neutrophils # 2.7 1.5 - 8.0 K/uL 04/27/2016 6:41 PM PDT [facility] Immat Gran # 0.0 0.0 - 0.1 K/uL 04/27/2016 6:41 PM PDT [facility] Lymphocytes # 1.6 1.0 - 3.5 K/uL 04/27/2016 6:41 PM PDT [facility] Monocytes # 0.4 0.2 - 1.0 K/uL 04/27/2016 6:41 PM PDT [facility] Eosinophils # 0.3 0.0 - 0.5 K/uL 04/27/2016 6:41 PM PDT [facility] Basophils # 0.0 0.0 - 0.2 K/uL 04/27/2016 6:41 PM PDT [facility] Blood 04/27/2016 9:30 AM PDT 04/27/2016 6:05 PM PDT Adi S Cristofer DDS LAB BLOOD ORDERABLES Final R esult Performing Organization Address [facility] de Phone Number [address] [phone] * (ABNORMAL) Vitamin D, 25-Hydroxy (04/27/2016 9:30 AM PDT) Vitamin D, 25-Hydroxy 23.4(L) See Comment ng/mL 04/28/2016 11:39 AM PDT [facility] Comment: Reference ranges: Deficiency: <20 ng/mL Insufficiency: 20-29 ng/mL Optimum Level: 30-80 ng/mL Possible Toxicity: > 150 ng/mL Blood 04/27/2016 9:30 AM PDT 04/27/2016 6:05 PM PDT Adi Cleveland DDS LAB BLOOD ORDERABLES Final R esult Performing Organization Address [facility] de Phone Number [address] [phone] * TSH (04/27/2016 9:30 AM PDT) Pathologist [facility] TSH 3.460 0.400 - 4.600 uIU/mL 04/27/2016 9:38 PM PDT [facility] Blood 04/27/2016 9:30 AM PDT 04/27/2016 6:05 PM PDT Adi Cleveland DDS LAB BLOOD ORDERABLES Final R esult Performing Organization Address [facility] de Phone Number [address] [phone] * (ABNORMAL) Lipid Panel (04/27/2016 9:30 AM PDT) Pathologist [facility] Cholesterol 293(H) <200 mg/dL 04/27/2016 10:26 PM PDT [facility] Comment: Desireable: <200 Borderline: 200-239 High: > 239 Triglycerides 63 <150 mg/dL 04/27/2016 10:26 PM PDT [facility] Comment: Normal: <150 Borderline: 150-199 High: 200-499 Very High: > or = 500 HDL Cholesterol 52 >=40 mg/dL 04/27/2016 10:26 PM PDT [facility] [employer] Comment: Low: <40 (High risk) Normal: 40-59 High: > or = 60 (Low risk) LDL, Calculated (Friedewald) 228(H) <100 mg/dL 04/27/2016 10:26 PM PDT [facility] Comment: Optimal: <100 Near Optimal: 100-129 Borderline: 130-159 High: 160-189 Very high: >189 Non-HDL Cholesterol 241(H) <130 mg/dL 04/27/2016 10:26 PM PDT [facility] Comment: Desirable: <130 Borderline: 130-159 High: 160-189 Very High: > or = 190 Blood 04/27/2016 9:30 AM PDT 04/27/2016 6:05 PM PDT Adi Cleveland [employer] LAB BLOOD ORDERABLES Final R esult Performing Organization Address City/[facility] Co de Phone Number [facility] [address] [place] [address] * Hemoglobin A1c (04/27/2016 9:30 AM PDT) Pathologist [facility] Hemoglobin A1c 5.6 4.0 - 5.6 % 04/28/2016 4:56 PM PDT [facility] Comment: Increased Risk for Diabetes: 5.7-6.4 Diagnostic for Diabetes: >/= 6.5 Est. Average Glucose (eAG) 114 mg/dL 04/28/2016 4:56 PM PDT [facility] Blood 04/27/2016 9:30 AM PDT 04/27/2016 6:05 PM PDT Adi Cleveland [employer] LAB BLOOD ORDERABLES Final R esult Performing Organization Address City/[facility]/ZIP Co de Phone Number [facility] [address] [place] [address] * Sedimentation Rate, Westergren (04/27/2016 9:30 AM PDT) Sedimentation Rate, Westergren 10 0 - 20 mm/hour 04/27/2016 8:46 PM PDT [facility] Blood 04/27/2016 9:30 AM PDT 04/27/2016 6:05 PM PDT Adi Cleveland DDS LAB BLOOD ORDERABLES Final R esult Performing Organization Address [facility] Co de Phone Number [address] [phone] * C-Reactive Protein (04/27/2016 9:30 AM PDT) Pathologist [facility] C-Reactive Protein 0.1 <1.0 mg/dL 04/27/2016 10:26 PM PDT [facility] Blood 04/27/2016 9:30 AM PDT 04/27/2016 6:05 PM PDT Narrative [facility] - 04/27/2016 10:26 PM PDT Note: CRP is used to indicate the presence of an inflammatory process; hsCRP (high sensitivity CRP) is used for CVD risk assessment. Adi Cleveland DDS LAB BLOOD ORDERABLES Final R esult Performing Organization Address [facility] de Phone Number [address] [phone] * (ABNORMAL) Comprehensive Metabolic Panel (04/27/2016 9:30 AM PDT) Pathologist [facility] Sodium 138 135 - 145 mmol/L 04/27/2016 10:26 PM PDT [facility] Potassium 3.7 3.5 - 5.2 mmol/L 04/27/2016 10:26 PM PDT [facility] Chloride 105 95 - 109 mmol/L 04/27/2016 10:26 PM PDT [facility] CO2 29 22 - 32 mmol/L 04/27/2016 10:26 PM PDT [facility] Anion Gap 4 3 - 12 mmol/L 04/27/2016 10:26 PM PDT [facility] Glucose 106(H) 70 - 99 mg/dL 04/27/2016 10:26 PM PDT [facility] BUN 18 6 - 20 mg/dL 04/27/2016 10:26 PM PDT [facility] Creatinine 0.90 0.61 - 1.24 mg/dL 04/27/2016 10:26 PM PDT [facility] GFR Non-Black (CKD-EPI) 84 >=60 mL/min/1. 73m2 04/27/2016 10:26 PM PDT [facility] GFR Black (CKD-EPI) 97 >=60 mL/min/1. 73m2 04/27/2016 10:26 PM PDT [facility] Protein, Total 6.4 6.2 - 8.4 g/dL 04/27/2016 10:26 PM PDT [facility] Albumin 4.1 3.5 - 5.0 g/dL 04/27/2016 10:26 PM PDT [facility] Calcium 9.0 8.6 - 10.2 mg/dL 04/27/2016 10:26 PM PDT [facility] Bilirubin, Total 0.8 0.1 - 1.2 mg/dL 04/27/2016 10:26 PM PDT [facility] Alkaline Phosphatase 43 30 - 110 U/L 04/27/2016 10:26 PM PDT [facility] ALT 27 17 - 63 U/L 04/27/2016 10:26 PM PDT [facility] AST 23 15 - 41 U/L 04/27/2016 10:26 PM PDT [facility] Calculated OSMO 278 275 - 295 mOsm/kg 04/27/2016 10:26 PM PDT [facility] Blood 04/27/2016 9:30 AM PDT 04/27/2016 6:05 PM PDT Adi Cleveland DDS LAB BLOOD ORDERABLES Final R esult [facility] [address] [place] [address] documented in this encounter Visit Diagnoses Diagnosis Impaired fasting glucose Vitamin D deficiency Unspecified vitamin D deficiency Hyperlipidemia Other and unspecified hyperlipidemia Polyosteoarthritis documented in this encounter Care Teams Steel Floor Pan Placing Supervisor Relationship Specialty Start Date End Date Aid Cleveland MD [address] [place] [address] PCP - General Family Medicine 08/20/15 11/27/20 [facility] [address] [facility] [address] [place] [address] PCP - General 11/28/20 07/06/21 Rey Patel DO [address] [facility] [address] [place] [address] PCP - Patient Reported PCP Family Medicine 06/09/21 [facility] [address] [place], [place] [phone] PCP - General 07/07/21 07/23/24 Adi Cleveland MD [address] [place], [place] [phone] PCP - General Family Medicine 07/24/24 10/21/24 Jeanette Jaimes MD [address] [place], [place] [phone] PCP - General Family Medicine 10/22/24 documented as of this encounter
--- OUTSIDE RECORDS SUMMARY | 2025-05-22 15:27 | XMS_ITS | Encounter Summary ---
Author Organization [facility] Address [address] [place] [address] Care Team Providers Care Plate Straightener Name Role Phone Adi Cleveland MD Primary Care Provider [phone] [facility] Primary Care Provide r Rey Patel DO Unavailable [phone] [facility] Primary Care Provide r Adi Cleveland MD Primary Care Provider [phone] Jeanette Jaimes MD Primary Care Provide r Encounter Details Date Type Department Care Team (Late st Contact Info) Description 01/05/2020 Orders Only [facility] [address] [place], [place] [phone] Blaire Pope, CS Social History Tobacco Use Types Packs/Day Years [...] on filedocumented in this encounter Care Teams Plate Straightener Relationship Specialty Start Date End Date Adi Cleveland MD [address] [place], [place] [address] PCP - General Family Medicine 08/20/15 11/27/20 [facility] [address] [facility] [address] [place], [place] [phone] PCP - General 11/28/20 07/06/21 Rey Patel DO [address] [facility] [address] [place], [place] [phone] PCP - Patient Reported PCP Family Medicine 06/09/[address] [phone] PCP - General 07/07/21 07/23/24 Adi Cleveland MD [address] [place], [place] [address] PCP - General Family Medicine 07/24/24 10/21/24 Jeanette Jaimes MD [address] [place], [place] [phone] PCP - General Family Medicine 10/22/24 documented as of this encounter
--- OUTSIDE RECORDS SUMMARY | 2025-05-22 15:27 | XMS_ITS | Clinical Summary ---
Author Organization [facility] Address [address] [address] Care Team Providers Care Grant Coordinator Name Role Phone Jeanette Jaimes MD Primary Care Provide r Allergies Active Allergy Reactions Criticality Noted Date Comments Hydromorphone Hallucinations 04/20/2022 Penicillins Rash Low States last had medication when he was a child; and doesn't recall the reaction Tens Unit Electrodes Rash Low 04/20/2022 Medications pramipexole (MIRAPEX) 1.5 MG tablet Take 1.5 mg by mouth At bedtime 1 Active ELIQUIS 5 mg tablet Take 5 mg by mouth Twice a day 2 Active baclofen (LIORESAL) 10 MG tablet Take 5-10 mg by mouth 3 (three) times daily as needed 2 Active HYDROcodone-george taminophen (NORCO) 5-325 mg per tablet Take 1 tablet by mouth at bedtime as needed 2 Active omeprazole (PRILOSEC) 20 MG capsule Take 20 mg by mouth every morning before breakfast Active cholecalciferol , vitamin D3, 25 mcg (1,000 unit) capsule Take 1,000 Units by mouth daily Active diazePAM (VALIUM) 2 MG tablet Take 2 mg by mouth 2 (two) times daily as needed 2 Active acetaminophen (TYLENOL) 325 MG tablet Take 325 mg by mouth every 4 (four) hours as needed for Pain Active rosuvastatin (CRESTOR) 40 MG tablet Take 40 mg by mouth every evening Active gabapentin (NEURONTIN) 100 MG capsule Take 100 mg by mouth 3 (three) times daily Active carvediloL (COREG) 3.125 MG tablet Take 1 tablet (3.125 mg total) by mouth 2 (two) times daily with meals Due for office visit. Call to schedule [phone]. 60 tablet 3 Active divalproex ER (DEPAKOTE ER) 250 MG 24 hr tablet Take 250mg nightly for a week, then take 500mg nightly thereafter. (Please check depakote level 1 week after you are taking 500mg) 60 tablet 6 3 Active lamoTRIgine (LAMICTAL) 25 MG tablet Take 50mg twice daily for 1 wk, then take 25mg twice daily for 1 wk, then stop 32 tablet 3 Active albuterol 90 mcg/actuation inhaler Inhale 2 puffs into the lungs every 6 (six) hours as needed (as necessary) Active colchicine (COLCRYS) 0.6 mg tablet Take 0.6 mg by mouth daily 5 Active hydroCHLOROthia zide (HYDRODIURIL) 25 MG tablet Take 1 tablet by mouth daily Active metoprolol succinate (TOPROL-XL) 25 MG 24 hr tablet Take 1 tablet by mouth daily Active spironolactone (ALDACTONE) 25 MG tablet Take 1 tablet by mouth daily Active umeclidinium-vi lanterol (ANORO ELLIPTA) 62.5-25 mcg/actuation diskus inhaler Inhale 1 puff into the lungs daily Active Active Problems Problem Noted Date Diagnosed Date Multiple gastric polyps 10/22/2024 Iron deficiency anemia 08/27/2024 Paroxysmal atrial fibrillation 04/24/2022 Essential hypertension, benign 04/24/2022 Shortness of breath 04/24/2022 Partial seizure 09/05/2021 Bilateral sensorineural hearing loss 05/10/2020 TIA (transient ischemic attack) 12/31/2019 Hyperlipidemia LDL goal <100 12/31/2019 Chronic anticoagulation 12/31/2019 History of pulmonary embolus (PE) 12/31/2019 Bilateral hearing loss due to cerumen impaction 08/21/2017 DVT (deep venous thrombosis) 08/03/2015 Overview (03/16/2021): Lower limb Migraine variant 10/13/2013 Positional vertigo, right 10/13/2013 Immunizations Immunization Administration Dates Next Due Influenza quad (PF) 04/22/2019 Td (PF) 2 Lf 02/05/2003 Tdap 04/19/2005 Social History Tobacco Use Types Packs/Day Years Used Date Smoking Tobacco: Former Cigarettes Q uit: 1970 Smokeless Tobacco: Never Tobacco Cessation:Counseling Given: No Alcohol Use Standard Drinks/Week Comments Not Currently 0 (1 standard drink = 0.6 oz pur e alcohol) Sex and Gender Information Value Date Recorded Sex Assigned at Not on file Legal Sex Male 9:15 PM PDT Gender Identity Not on file Sexual Orientation Not on file Last Filed Vital Signs Vital Sign Reading Time Taken Comments Blood Pressure 135/83 10/22/2024 3:47 PM PDT Pulse 74 10/22/2024 3:47 PM PDT Temperature 36.2 C (97.2 F) 10/22/2024 3:47 PM PDT Respiratory Rate 18 10/22/2024 3:47 PM PDT Oxygen Saturation 97% 10/22/2024 3:47 PM PDT Inhaled Oxygen Concentration - - Weight 101.5 kg (223 lb 12.3 oz) 2024 12:41 PM PDT Height 172.7 cm (5' 8) 10/22/2024 12:4 1 PM PDT Body Mass Index 34.02 10/22/2024 12:41 PM PDT Plan of Treatment Health Maintenance Due Date Last Done Comments Disability Screening 1940 Pneumococcal 50+ Years (1 of 1 - PCV) 09/02/1991 Zoster (1 of 2) 09/02/1991 Medicare Initial Annual Well ness Visit [id number] 08/30/2006 DTaP/Tdap/Td Vaccine (2 - Td or Tdap) 04/19/2015 04/19/2005, 02/05/2003 RSV Vaccines (1 - 1-dose 75+ series) 2016 Basic Metabolic Panel 08/26/2022 08/26/2021 , 08/25/2021, 07/04/2021, Additional history exists Drug, Alcohol, and Depressio n Screening 07/02/2024 SOGIE 07/02/2024 Covid-19 Vaccine ( - 2023-2 5 season) 2025 Influenza Vaccine (#1) 2025 04/22/2019 Medical Devices Implanted Type Area Hook Loader Device Identifier Shelf Expiration Date Model / Serial / Lot Pins In Great Toes Bilateral: Foot Pierce Procedures Procedure Name Priority Date/Time Associated Diagnosis Comments COMPREHENSIVE METABOLIC PANEL STAT 08/26/2021 2:38 AM [facility] from Last 3 Months or Most Recently Relevant to Health Maintenance Results * (ABNORMAL) Comprehensive Metabolic Panel (08/26/2021 2:38 AM PST) Sodium 140 136 - 145 mmol/L 08/26/2021 3:[address] [facility] [employer] [address] Potassium 4.4 3.5 - 5.1 mmol/L 08/26/2021 3:27 AM [facility] 710 Chloride 104 98 - 111 mmol/L 08/26/2021 3:[address] [facility] 710 CO2 29 21 - 32 mmol/L 08/26/2021 3:[address] [facility] 710 Anion Gap 7 3 - 12 mmol/L 08/26/2021 3:[address] [facility] 710 Glucose 111(H) 70 - 99 mg/dL 08/26/2021 3:27 AM [facility] 710 BUN 20 9 - 23 mg/dL 08/26/2021 3:27 AM [facility] 710 Creatinine 0.95 0.70 - 1.30 mg/dL 08/26/2021 3:27 AM [facility] 710 eGFR (CKD-EPI 2020) 76 >=60 mL/min/1. 73m2 08/26/2021 3:[address] [facility] 710 Protein, Total 6.8 5.7 - 8.2 g/dL 08/26/2021 3:[address] [facility] 710 Albumin 3.6 3.4 - 5.0 g/dL 08/26/2021 3:[address] [facility] 710 Globulin 3.2 2.2 - 3.5 g/dL 08/26/2021 3:27 AM PST [facility] 710 Calcium 9.4 8.7 - 10.4 mg/dL 08/26/2021 3:27 AM [facility] 710 Bilirubin, Total 0.9 0.3 - 1.2 mg/dL 08/26/2021 3:27 AM [facility] 710 Alkaline Phosphatase 63 38 - 126 U/L 08/26/2021 3:27 AM [facility] 710 ALT 25 9 - 54 U/L 08/26/2021 3:27 AM [facility] 710 AST 24 13 - 40 U/L 08/26/2021 3:27 AM [facility] 710 Comment:Specimen hemolyzed. Results may be falsely increased. Blood (substance) Venipuncture / Unknown 08/26/2021 2:38 AM PST 08/26/2021 2:41 AM [facility] Nadeem Tam MD LAB BLOOD ORDERABLES Final Result Performing Organization Address City/State/[facility] Co or Phone Number [facility] [address] [place], [place] [phone] from Last 3 Months or Most Recently Relevant to Health Maintenance Insurance MEDICARE [facility] Advance Directives * Full Code (Latest Code Status on File) Date Activated Date Inactivated Comments 10/22/2024 3:19 PM 10/22/2024 6:02 PM * Full Code Date Activated Date Inactivated Comments 08/26/2021 3:23 AM 08/27/2021 12:19 PM * Full Code Date Activated Date Inactivated Comments 07/04/2021 3:24 PM 07/05/2021 6:35 PM * Full Code Date Activated Date Inactivated Comments 11/28/2020 2:49 PM 11/29/2020 9:40 PM * Full Code Date Activated Date Inactivated Comments 01/04/2020 2:18 PM 01/05/2020 7:10 PM Care Teams Grant Coordinator Relationship Specialty Start Date End Date Jeanette Jaimes MD [address] [place] [address] PCP - General Family Medicine 10/22/24
--- OUTSIDE RECORDS SUMMARY | 2025-05-22 15:27 | XMS_ITS | Encounter Summary ---
Author Organization Located within [facility] Address [facility] [address] Care Team Providers Care Overhead Crane Truck Loader Name Role Phone Rey Patel DO Unavailable [phone] [place] [facility] Primary Care Provide r Adi Cleveland MD Primary Care Provider [phone] Jeanette Jaimes MD Primary Care Provide r Encounter Details Date Type Department Care Team (Late st Contact Info) Description 06/26/2024 Scanned Document SCANNED ONLY Scanned, Document Social [...] on filedocumented in this encounter Care Teams Overhead Crane Truck Loader Relationship Specialty Start Date End Date Rey Patel DO [address] [place] [phone] PCP - Patient Reported PCP Family Medicine 06/09/21 [facility] [place] [place] [address] PCP - General 07/07/21 07/23/24 Adi Cleveland MD [address] [place], [place] [address] PCP - General Family Medicine 07/24/24 10/21/24 Jeanette Jaimes MD [address] [place] [address] PCP - General Family Medicine 10/22/24 documented as of this encounter
--- OUTSIDE RECORDS SUMMARY | 2025-05-22 15:27 | XMS_ITS | Encounter Summary ---
Author Organization [facility] Address [facility] [address] Care Team Providers Care Machine Whitener Name Role Phone Kirk Prado Primary Care Provider Unavaila ble Adi Cleveland MD Primary Care Provider [phone] [facility] Primary Care Provide r Rey Patel DO Unavailable [phone] [facility] Primary Care Provide r Adi Cleveland MD Primary Care Provider [phone] Jeanette Jaimes MD Primary Care Provide r Reason for Referral * Diagnostic Procedure (Routine) - Closed Specialty Diagnoses / Procedures Referred By Jesus stoddard Referred To Contact Cardiology Diagnoses Right bundle branch block Procedures PH CARD:NM Myocardial Perfusion SPECT Multiple with Pharmacy Stress Test CHG MYOCARDIAL SPECT MULTIPLE STUDIES Adi Cleveland MD [address] [facility] [place] [address] Phone: tel: fax: CARDIOLOGY - [place], [place] - [facility] [id number] [facility] [address] [address] Phone: tel: fax: Referral ID Status Reason Start Date Expiration Date V isits Requested Visits Authorized [id number] Closed Service Not Available In-House 08/19/2015 08/18/2016 1 1 Encounter Details Date Type Department Care Team (Latest Contact Info) Description 08/19/2015 Order Mail Handler Equipment Operator CARDIOLOGY - [place] - [facility] [id number] [facility] [address] [place] [id number] Adi Cleveland MD [address] [place] [address] Right bundle branch block (Primary Dx) Social History Tobacco Use Types Packs/Day Years Used Date Smoking Tobacco: Never Assessed Sex and Gender Information Value Date Recorded Sex Assigned at Not on file Legal Sex Male 9:15 PM PDT Gender Identity Not on file Sexual Orientation Not on file documented as of this encounter Plan of Treatment Scheduled Orders Name Type Priority Associated Diagnoses Orde r Schedule PH CARD:NM Myocardial Perfusion SPECT Multiple with Pharmacy Stress Test Cardiac Services Routine Right bundle branch block Ordered: 08/19/2015 documented as of this encounter Visit Diagnoses Diagnosis Right bundle branch block- Primary documented in this encounter Care Teams Machine Whitener Relationship Specialty Start Date End Date Kirk Prado PCP - General 02/12/13 08/19/15 Adi Cleveland MD [address] [place], [place] [id number] PCP - General Family Medicine 08/20/15 11/27/20 [facility] [address] [facility] [address] [place], [place] [id number] PCP - General 11/28/20 07/06/21 Rey Patel DO [address] [facility] [address] [place] [address] PCP - Patient Reported PCP Family Medicine 06/09/21 [facility] [address] [address] PCP - General 07/07/21 07/23/24 Adi Cleveland MD [address] [place] [address] PCP - General Family Medicine 07/24/24 10/21/24 Jeanette Jaimes MD [address] [place] [address] PCP - General Family Medicine 10/22/24 documented as of this encounter
--- OUTSIDE RECORDS SUMMARY | 2025-05-22 15:27 | XMS_ITS | Encounter Summary ---
Author Organization [facility] Address [facility] [address] Care Team Providers Care Digital Content Specialist Name Role Phone Adi Cleveland MD Primary Care Provider [phone] [facility] Primary Care Provide r Rey Patel DO Unavailable [phone] [place] [address] Primary Care [facility] Primary Care Provide r Adi Cleveland MD Primary Care Provider Jeanette Jaimes MD Primary Care Provide r Encounter Details Date Type Department Care Team (Late st Contact Info) Description 10/25/2016 Documentation [facility] BRAKE ASSEM[facility]ER Silvano Hopkins MD [address] [address] Social History Tobacco Use Types Packs/Day Years Used Date Smoking Tobacco: Never Assessed Sex and Gender Information Value Date Recorded Sex Assigned at Not on file Legal Sex Male 9:15 PM PDT Gender Identity Not on file Sexual Orientation Not on file documented as of this encounter Progress Notes * Silvano Hopkins - 10/25/2016 1:00 PM PDT EGD-Colonoscopy Report Date: 10/25/2016 1:00 PM Patient Name: Kayden Chris Gender: Male .0 (age): 1940 (76) Endoscopist(s): Silvano Hopkins MD Referring Physician(s): Adi Cleveland MD [address], [place] [address] (phone) (fax) PCP: Adi Cleveland MD Nurse(s): Camelia Calixto RN (Intra-Procedure, Post-Procedure, Pre-Procedure) Diane Norris RN (Pre-Procedure) Instrument(s): [id number]) ASA Class: P2 - 10/25/2016 12:48 PM Silvano Hopkins MD History of Present Illness: This patient has a personal history of adenomatous colon polyps and is now seen for colorectal surveillance/screening.The patient is seen for EGD evaluation of chronic severe heartburn. His heartburn has been progressive despite omeprazole. Administered Medications: Fentanyl 100 mcg IV Versed 5 mg IV EGD Indications: Heartburn: 787.1 - R12 Esophageal reflux symptoms that are persistent or recurrent despite appropriate therapy: GIQuIC reporting Colonoscopy Indications: Personal History Colon Polyps: V12.72 - Z86.010 Personal History Colon Polyps: V12.72 - Z86.010 Vital Signs: Weight (lbs/oz) Height (ft/in) BMI 200 / 5 / 8 30.41 BP (mmHg) Pulse (ppm) Rhythm Resp/min Temp SPO2 (%) Notes 135/81 70 Regular 16 98.4 (F) 98 Lungs clear to auscultation, AJR RN Physical Exam: Physical exam was performed on 10/25/2016 at 12:49 PM. Respiratory: Auscultation: clear to auscultation bilaterally without wheezes or crackles. Cardiovascular: Auscultation: normal S1/S2 without murmur, regular rhythm. Gastrointestinal/Abdomen: Palpation: soft and nontender. Psychiatric: Orientation: oriented to person, place and situation. Neurologic: Speech: speech intact. Language: language intact. General Procedure: The procedure, indications, preparation and potential complications were explained to the patient, who indicated understanding and signed the corresponding consent forms. Moderate sedation was administered by a nurse, under orders from the physician. My signature below confirms administration of medications and all actions during the procedure were performed under physician direction. Pulse oximetry, cardiac rhythm and blood pressure monitoring were used throughout the procedure. Supplemental oxygen was used. EGD EGD Procedure: The patient was placed in the left lateral decubitus position. The endoscope was introduced through the mouth and was advanced under direct visualization until the second part of the duodenum was reached. The vocal cords were visualized. Patient tolerance to the procedure was good. The procedure was not difficult. EGD Limitations/Complications: There were no apparent limitations or complications. EGD Findings: Esophagus Mucosa Diffuse continuous concentric rings and linear furrows of the mucosa was noted in the whole esophagus. These findings are compatible with likely Eosinophilic Esophagitis. Multiple cold forceps biopsies were performed for histology in the whole esophagus. Stomach Lumen A small size hiatal hernia was seen. Mucosa Localized erythema of the mucosa was noted in the antrum and pre-pyloric region. These findings are compatible with gastropathy vs. Gastritis. Multiple cold forceps biopsies were performed for histology in the stomach antrum, incisura and body. Protruding lesions Many pedunculated polyps of benign appearance ranging in size from 5 mm to 15 mm were found in the stomach body. Findings are consistent with benign fundic gland-type polyp(s). Multiple cold forceps biopsies were performed for histology in the stomach body. Duodenum Mucosa Normal mucosa was noted in the whole duodenum. EGD Impressions: Normal mucosa in the duodenum. Erythema in the antrum and pre-pyloric region compatible with gastropathy vs. Gastritis. (Biopsy). Polyps (5 mm to 15 mm) in the stomach body. (Biopsy). Hiatal Hernia. Concentric rings and linear furrows in the whole esophagus compatible with likely Eosinophilic Esophagitis. (Biopsy). Colonoscopy Colonoscopy Procedure: The final quality of preparation/visualization was EXCELLENT. The patient was placed in left lateral decubitus position. The colonoscope was introduced through the rectum and was advanced under direct visualization until the cecum and appendiceal orifice was reached. The appendiceal orifice and the ileo-cecal valve were identified. The endoscope was not retroflexed within the rectum. Careful visualization was performed as the instrument was withdrawn. Patient tolerance to the procedure was good. The procedure was not difficult. Digital exam was normal. The patient is considered average risk for colon cancer. The procedure is considered a surveillance examination. The patient's last colonoscopy was 09/15/2011. This interval is because of a medical reason. Colonoscopy Limitations/Complications: There were no apparent limitations or complications. Colonoscopy Findings: Protruding lesions Three sessile polyps of benign appearance ranging in size from 2 mm to 3 mm were found in the ascending colon and transverse colon. A single-piece polypectomy was performed using a cold snare. Resection was complete. A single-piece polypectomy was performed using a cold forceps. Resection was complete. Three sessile polyps of benign appearance ranging in size from 3 mm to 2 mm were found in the sigmoid colon and rectum. A single-piece polypectomy was performed using a cold forceps. Resection was complete. A single-piece polypectomy was performed using a cold snare. Resection was complete. Colonoscopy Impressions: Polyps (2 mm to 3 mm) in the ascending colon and transverse colon. (Polypectomy, Polypectomy). Polyps (3 mm to 2 mm) in the sigmoid colon and rectum. (Polypectomy, Polypectomy). Plan: - If you take a daily aspirin for a heart condition, a history of stroke, or similar condition, continue this daily aspirin, but please avoid taking additional aspirin or aspirin-containing medications, or non-steroidal (NSAID) medications for 3 days. Examples of NSAIDs include ibuprofen, Motrin, Aleve, Naprosyn/naproxen, Voltaren/diclofenac. You may take Tylenol/acetaminophen or Celebrex. - A letter with the pathology results and recommendations will be mailed to the patient and primary care provider. - Colonoscopy in 3-5 years, pending results Samples: Jar # 1 : Biopsy in the stomach antrum, incisura and body Findings: Erythema Test(s) requested: Histology Jar # 2 : Biopsy in the stomach body Findings: Polyp Test(s) requested: Histology Jar # 3 : Biopsy in the whole esophagus Test(s) requested: Histology Jar # 4 : Polypectomy in the ascending colon and transverse colon Findings: Polyp Test(s) requested: Histology Jar # 5 : Polypectomy in the sigmoid colon and rectum Findings: Polyp Test(s) requested: Histology Pathology: Pathology to be submitted Silvano Hopkins MD Electronically signed on 10/25/2016 2:07:35 PM by Silvano Hopkins MD documented in this encounter Plan of Treatment Not on file documented as of this encounter Visit Diagnoses Not on filedocumented in this encounter Care Teams Digital Content Specialist Relationship Specialty Start Date End Date Adi Cleveland MD [address] [place] [address] PCP - General Family Medicine 08/20/15 11/27/20 [facility] [address] [facility] [address] [place], [place] [id number] PCP - General 11/28/20 07/06/21 Rey Patel DO [address] [facility] [address] [place], [place] [id number] PCP - Patient Reported PCP Family Medicine 06/09/21 [facility] [address] [place], [place] [id number] PCP - General 07/07/21 07/23/24 Adi Cleveland MD [address] [place] [address] PCP - General Family Medicine 07/24/24 10/21/24 Jeanette Jaimes MD [address] [place], [place] [id number] PCP - General Family Medicine 10/22/24 documented as of this encounter
== END 2025-05-20 12:28 | disposition home or self-care (01) ==
LOC: RAD 10:56
PROVIDERS: PCP Family Medicine; Referring Provider Physical Medicine & Rehabilitation; Visit Provider Physical Medicine & Rehabilitation
DX: M25.552 Pain in left hip (principal); M16.12 Unilateral primary osteoarthritis, left hip
CPT/HCPCS: 20610; 77002